=== PATIENT | female | born 1940 | race Caucasian/White ===

== ENCOUNTER 2016-11-08 01:04 | Inpatient (IN) ==
[2016-11-08] MEDS ORDERED: SALINE FLUSH 10ml SYRINGE IVF PRN (01:29)
[2016-11-08] MEDS ORDERED: ONDANSETRON 4 MG/2 ML INJECTION IVP ONE ×3 (01:30→20:02)
[2016-11-08] MEDS ORDERED: NS 1,000 ML IV ONE (01:30)
[2016-11-08] MEDS ORDERED: FentaNYL 100 MCG/2 ML INJECTION IVP ONE (01:30)
--- NOTE | 2016-11-08 01:31 | Emergency Department Report ---
General Adult HPI - General Chief complaint: Abdominal Pain Stated complaint: nausea,abd pain Time Seen by Provider: 11/08/16 01:19 Source: patient, family Mode of arrival: ambulatory Limitations: no limitations - History of Present Illness HPI narrative: 75-year-old female presents to the emergency department with a chief complaint of intractable nausea and vomiting and persistent abdominal pain. Patient was seen in the emergency department on November 05 and was discharged home with prescriptions for [place], Zofran, and Levaquin. Patient states that she is not improving in her symptoms have exacerbated. She states she is unable to keep down her medications or oral intake. Patient describes her abdominal pain is moderate to severe in nature. It is in the upper abdomen without radiation. She does not note any exacerbating or remitting factors. She denies any blood in the emesis. Patient was at home when her symptoms began. Symptoms been persistent in nature since onset. Patient is currently being treated for bilateral lower lobe consolidations noted on CT scan of the abdomen pelvis. No other complaints or associated symptoms. - Related Data Home Medications Medication Instructions Recorded Confirmed Flaxseed Oil 1,000 mg PO DAILY #0 08/05/10 Garlic 1 cap PO DAILY #0 08/05/10 [place]-3 Fatty Acids [Fish Oil] 500 mg PO DAILY #0 08/05/10 Potassium Chloride (K+ Potassium) 20 meq PO DAILY #0 08/05/10 Sennosides [Senokot] 8.6 mg PO DAILY #0 08/05/10 Ubidecarenone/Vitamin E [Co Q-10 1 cap PO DAILY #0 08/05/10 50 mg Softgel] Aspirin [Aspir 81] 81 mg PO DAILY #0 02/16/11 Cranberry 500 mg PO DAILY #0 02/16/11 Green Tea [place] Extract [Green Tea] 1 cap PO DAILY #0 02/16/11 Lactobacillus Acidophilus 1 cap PO DAILY #0 02/16/11 [Acidophilus] Triamterene [Dyrenium] 50 mg PO DAILY #0 02/16/11 Previous Rx's Medication Instructions Recorded Hydrocodone/APAP 5/325 [[place] 1 tab PO Q6H PRN #12 tab 11/05/16 5/325] Levofloxacin [Levaquin] 500 mg PO DAILY #5 tablet 11/05/16 Ondansetron [Zofran Odt] 1 tab PO Q6HR PRN #10 tab 11/05/16 Allergies Allergy/AdvReac Type Severity Reaction Status Date / Time No Known Allergies Allergy Verified 11/05/16 21:41 Review of Systems Constitutional: Denies: fever, chills Eyes: Denies: eye pain, vision change ENT: Denies: ear pain, throat pain Cardiovascular: Denies: chest pain, palpitations Respiratory: Reports: cough. Denies: dyspnea Gastrointestinal: Reports: abdominal pain, nausea, vomiting. Denies: diarrhea Genitourinary: Denies: urgency, dysuria Musculoskeletal: Denies: back pain, arthralgia Integumentary: Denies: erythema, rash Neurological: Denies: headache, numbness Psychiatric: Denies: anxiety, depression Endocrine: Denies: fatigue, heat or cold intolerance Hematological/Lymphatic: Denies: easy bleeding, easy bruising Allergic/Immunologic: Denies: facial swelling, urticaria PFSH Patient Stated Medical History Heart Murmur Yes Hypertension Yes Gastroesophageal Reflux Yes Disease Osteoarthritis Yes Surgical History: Tubal Ligation Family History: Reviewed and noncontributory. - Social History Smoking status: Never smoker Substance use type: does not use Alcohol intake frequency: does not drink Physical Exam - Limitations Limitations: no limitations - General General appearance: alert, in no apparent distress - Normal Exams: Head:: Normocephalic without trauma Eyes:: Pupils are PERRLA w/ EOMI, No scleral icterus, irritation, or foreign bodies noted ENMT:: No facial trauma, nasal exudates, pharyngeal erythema, or exudates are noted Dental: No fractured, loose, or missing teeth noted Neck:: Full range of motion, without adenopathy, JVD, bruits or thyromegaly Chest/Respirations:: Clear all philippe, with good airflow, and symmetry bilaterally Cardiovascular:: Regular rate and rhythm, without murmur or gallop, Pulses 2+ all extremities, capillary refill, <2 seconds all extremities Abdomen:: Bowel sounds positive, non-distended, no hepatosplenomegaly, masses or bruits noted (mild epigastric tenderness to palpation without rebound or guarding. No CVA tenderness. Soft.) Lymphatic:: No lymphadenopathy, or lymphedema noted Musculoskeletal:: No tenderness, or deformity noted, good range of motion, all extremities Integumentary:: No rashes, hives, or bruising noted, hair and nails, without abnormality Neurological:: Patient is alert, and oriented, cranial nerves, motor/sensory/ cerebellar, exams w/o gross deficits, to observation Psychiatric:: Patient exhibits, appropriate attention, emotion and affect Course Vital Signs Temperature 98.1 F 11/08/16 01:04 Pulse Rate 82 11/08/16 01:04 Respiratory Rate 18 11/08/16 01:04 Blood Pressure 179/91 H 11/08/16 01:04 Pulse Oximetry 92 11/08/16 01:04 Temperature 98.1 F 11/08/16 01:04 Pulse Rate 82 11/08/16 01:04 Respiratory Rate 18 11/08/16 01:04 Blood Pressure 179/91 H 11/08/16 01:04 Pulse Oximetry 92 11/08/16 01:04 Medical Decision Making - [facility] Narrative Medical decision making narrative: Labs / imaging were discussed in detail with the patient and questions are answered. Patient had a CT scan of the abdomen and pelvis done on 11/06/2016 which showed bilateral lower lobe consolidations of the lungs and an abnormal pancreatic lesion. Imaging is not repeated due to the recent nature of these images. Patient is given gentle IV hydration. She is given parental narcotic and antiemetic medications intravenously with improvement of symptoms. Patient is still experiencing nausea and vomiting in the emergency department. Patient requests admission to the hospital at this time. Patient is started on Rocephin and azithromycin intravenously at 0330 when sepsis was considered. Patient was discussed with Dr. Pranav Krueger from the hospitalist service who agrees to admit the patient to the service of Dr. Carlson. No further orders from consulting or accepting physicians who were in agreement with the current plan of management. Patient has failed outpatient treatment and will be treated in the hospital at this time. - Differential Diagnosis intractable nausea and vomiting, failed outpatient treatment,metabolic, PNA - Lab Data Result diagrams: 11/08/16 01:46 11/08/16 01:46 Lab Results 11/08/16 11/08/16 11/08/16 Range/Units 01:46 01:46 03:00 WBC 18.1 H D (4.5-11.0) T/MM3 RBC 5.29 H (4.00-5.20) M/MM3 Hgb 15.7 (12-16) GM/DL Hct 45.0 (36-46) % MCV 85.1 (80-100) UM3 MCH 29.7 (26-34) UUG MCHC 34.9 (31-37) GM/DL RDW Std Deviation 42.2 (36.9-50.2) FL Plt Count 353 (130-400) T/MM3 MPV 9.9 (9.4-12.4) UM3 Immature Gran % (Auto) Not performed Neut % (Auto) Not performed Lymph % (Auto) Not performed [place] % (Auto) Not performed Eos % (Auto) Not performed Baso % (Auto) Not performed Neut # Not performed Lymph # Not performed [place] # Not performed Eos # Not performed Baso # Not performed Abs Immat Gran (auto) Not performed Neutrophils % (Manual) 85.0 H (33-66) % Lymphocytes % (Manual) 11.0 L (23-45) % Monocytes % (Manual) 4.0 (0-9.0) % Neutrophils # (Manual) 15.4 H (1.8-7.7) T/MM3 Lymphocytes # (Manual) 2.0 (1-4.8) T/MM3 Monocytes # (Manual) 0.7 (0-0.8) T/MM3 RBC Morph Comment Normal Turbidity < 20 (0-20) Sodium 132 L D (134-144) MEQ/L Potassium 3.4 L (3.6-5) MEQ/L Chloride 92 L D (98-107) MEQ/L Carbon Dioxide 29 (22-30) MEQ/L Anion Gap 11 (5-15) MEQ/L BUN 21.0 H (7-17) MG/DL Creatinine 0.8 (0.7-1.2) MG/DL GFR Calculation 70 BUN/Creatinine Ratio 26 (6-26) RATIO Glucose 140 H (65-110) MG/DL Calculated Osmolality 260 L (261-280) MOSM/KG Calcium 10.5 H (8.4-10.2) MG/DL Total Bilirubin 0.90 (0.20-1.30) MG/DL Icterus Index < 2 (0-7) AST 14 (14-36) U/L ALT 41 (9-52) U/L Alkaline Phosphatase 65 (38-126) U/L Total Protein 8.2 (6.3-8.2) G/DL Albumin 4.8 (3.5-5.0) G/DL Globulin 3.4 (2.4-3.6) G/DL Albumin/Globulin Ratio 1.4 (1.1-2.2) RATIO Lipase 91 (23-300) U/L Plasma Lactate (0.6-2.2) MMOL/L Specimen Hemolysis < 15 (0-25) Ur Collection Type Urine, clean catch Urine Color Yellow (YELLOW) Urine Clarity Clear Urine pH 6.0 (5.0-8.0) Ur Specific [place] 1.025 (1.015-1.025) Urine Protein Negative (NEGATIVE) Urine Glucose (UA) Negative (NEGATIVE) Urine Ketones Trace A (NEGATIVE) Urine Occult Blood Negative (NEGATIVE) Urine Nitrate Negative (NEGATIVE) Urine Bilirubin 1+ A (NEGATIVE) Urine Urobilinogen 0.2 (NORMAL) EU/DL Ur Leukocyte Esterase Negative (NEGATIVE) Urinalysis Comment Microscopic not ind. 11/08/16 Range/Units 04:14 WBC (4.5-11.0) T/MM3 RBC (4.00-5.20) M/MM3 Hgb (12-16) GM/DL Hct (36-46) % MCV (80-100) UM3 MCH (26-34) UUG MCHC (31-37) GM/DL RDW Std Deviation (36.9-50.2) FL Plt Count (130-400) T/MM3 MPV (9.4-12.4) UM3 Immature Gran % (Auto) Neut % (Auto) Lymph % (Auto) [place] % (Auto) Eos % (Auto) Baso % (Auto) Neut # Lymph # [place] # Eos # Baso # Abs Immat Gran (auto) Neutrophils % (Manual) (33-66) % Lymphocytes % (Manual) (23-45) % Monocytes % (Manual) (0-9.0) % Neutrophils # (Manual) (1.8-7.7) T/MM3 Lymphocytes # (Manual) (1-4.8) T/MM3 Monocytes # (Manual) (0-0.8) T/MM3 RBC Morph Comment Turbidity (0-20) Sodium (134-144) MEQ/L Potassium (3.6-5) MEQ/L Chloride (98-107) MEQ/L Carbon Dioxide (22-30) MEQ/L Anion Gap (5-15) MEQ/L BUN (7-17) MG/DL Creatinine (0.7-1.2) MG/DL GFR Calculation BUN/Creatinine Ratio (6-26) RATIO Glucose (65-110) MG/DL Calculated Osmolality (261-280) MOSM/KG Calcium (8.4-10.2) MG/DL Total Bilirubin (0.20-1.30) MG/DL Icterus Index (0-7) AST (14-36) U/L ALT (9-52) U/L Alkaline Phosphatase (38-126) U/L Total Protein (6.3-8.2) G/DL Albumin (3.5-5.0) G/DL Globulin (2.4-3.6) G/DL Albumin/Globulin Ratio (1.1-2.2) RATIO Lipase (23-300) U/L Plasma Lactate 1.2 (0.6-2.2) MMOL/L Specimen Hemolysis (0-25) Ur Collection Type Urine Color (YELLOW) Urine Clarity Urine pH (5.0-8.0) Ur Specific [place] (1.015-1.025) Urine Protein (NEGATIVE) Urine Glucose (UA) (NEGATIVE) Urine Ketones (NEGATIVE) Urine Occult Blood (NEGATIVE) Urine Nitrate (NEGATIVE) Urine Bilirubin (NEGATIVE) Urine Urobilinogen (NORMAL) EU/DL Ur Leukocyte Esterase (NEGATIVE) Urinalysis Comment - Radiology Data CT ABD/PELVIS: Reviewed from 11/06/16. - EKG Data EKG #1 EKG results narrative: Sinus rhythm. 86 bpm. No STEMI. Disposition Clinical Impression: Failure of outpatient treatment Intractable nausea and vomiting Qualifiers: Vomiting type: unspecified Qualified Code(s): R11.2 - Nausea with vomiting, unspecified Pneumonia Qualifiers: Pneumonia type: due to unspecified organism Laterality: unspecified laterality Lung location: unspecified part of lung Qualified Code(s): J18.9 - Pneumonia, unspecified organism Disposition: 02 To [facility] [place] Acute Care Condition: Improved Prescriptions: No Action [place]-3 Fatty Acids [Fish Oil] 500 mg PO DAILY #0 Flaxseed Oil 1,000 mg PO DAILY #0 Potassium Chloride (K+ Potassium) 20 meq PO DAILY #0 Sennosides [Senokot] 8.6 mg PO DAILY #0 Triamterene [Dyrenium] 50 mg PO DAILY #0 Aspirin [Aspir 81] 81 mg PO DAILY #0 Cranberry 500 mg PO DAILY #0 Hydrocodone/APAP 5/325 [[place] 5/325] 1 tab PO Q6H PRN #12 tab PRN Reason: Pain Ondansetron [Zofran Odt] 1 tab PO Q6HR PRN #10 tab PRN Reason: Nausea Ubidecarenone/Vitamin E [Co Q-10 50 mg Softgel] 1 cap PO DAILY #0 Garlic 1 cap PO DAILY #0 Green Tea [place] Extract [Green Tea] 1 cap PO DAILY #0 Lactobacillus Acidophilus [Acidophilus] 1 cap PO DAILY #0 Levofloxacin [Levaquin] 500 mg PO DAILY #5 tablet Referrals: Ignacio Gomez DO [Family Provider] - Time of Disposition: 03:20 (Admit. Dr. Carlson. ) - Seen By: physician
[2016-11-08] MEDS ORDERED: AZITHROMYCIN IV 500 MG in NS 250ml 250 ML IV ONE (03:30)
[2016-11-08] MEDS ORDERED: CEFTRIAXONE (ER USE ONLY) 1 GM in NS 100 ML IV ONE (03:30)
[2016-11-08] MEDS ORDERED: AZITHROMYCIN IV 500 MG in NS 250ml 250 ML IV SCH (04:35)
[2016-11-08] MEDS ORDERED: CEFTRIAXONE 2 GM INJECTION IV SCH (04:35)
[2016-11-08] MEDS ORDERED: ALBUTEROL 2.5mg/3ml (0.083%) NEB AEROSOL ONE (04:35)
--- NOTE | 2016-11-08 04:59 | History & Physical Report ---
History of Present Illness Date: 11/08/16 Chief complaint: nausea, weakness HPI: This is a 75 y/o female who was seen this past Tuesday in the ED for nausea, abdomen pain, and shortness of breath. The workup demonstrated a right lower lobe infiltrate and a cyst in the head of the Pancrease. The patient was diagnosed with CAP and started on Levaquin. Since discharge from the ED the patient has had persist nausea and weakness. The patient denies fever but perhaps chills and sweats. The patient's labs demonstrate a significant leukocytosis and evidence of dehydration. She is to be admitted for IVF and Iv antibiotics for her CAP. The pateint does describe a cough that is productive of a green sputum Review of Systems Review of systems: no headache, no change in vision, no fever but chills and sweats, generalized weakness. nausea with occasional emesis, cough productive of green sputum, abdomen pain from nausea and emesis, no diarrhea, no edema to legs, no focal neurological complaints. 10 point ROS otherwise neg except for outlined abovce. 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 Does patient use chewing tobacco?: No Current residence: Apartment/Private Home Medications Home Medications Medication Instructions Recorded Confirmed Type Flaxseed Oil 1,000 mg PO DAILY #0 08/05/10 History Garlic 1 cap PO DAILY #0 08/05/10 History [place]-3 Fatty Acids [Fish Oil] 500 mg PO DAILY #0 08/05/10 History Potassium Chloride (K+ Potassium) 20 meq PO DAILY #0 08/05/10 History Sennosides [Senokot] 8.6 mg PO DAILY #0 08/05/10 History Ubidecarenone/Vitamin E [Co Q-10 1 cap PO DAILY #0 08/05/10 History 50 mg Softgel] Aspirin [Aspir 81] 81 mg PO DAILY #0 02/16/11 History Cranberry 500 mg PO DAILY #0 02/16/11 History Green Tea [place] Extract [Green Tea] 1 cap PO DAILY #0 02/16/11 History Lactobacillus Acidophilus 1 cap PO DAILY #0 02/16/11 History [Acidophilus] Triamterene [Dyrenium] 50 mg PO DAILY #0 02/16/11 History Allergies Allergy/AdvReac Type Severity Reaction Status Date / Time No Known Allergies Allergy Verified 11/05/16 21:41 Exam Vital Signs: Temperature 98.1 F 11/08/16 01:04 Pulse Rate 82 11/08/16 01:04 Respiratory Rate 18 11/08/16 01:04 Blood Pressure 179/91 H 11/08/16 01:04 Pulse Oximetry 92 11/08/16 01:04 Telemetry Rhythm: Sinus Rhythm Height: 1.57 m Weight: 71.5 kg - Constitutional Present: mild distress - Routine HEENT Exam Head: Present: normocephalic, atraumatic Eye: Present: EOMI. Absent: scleral injection ENT: Present: mucous membranes dry - Routine Neck Exam Present: supple, full ROM - Routine Respiratory Exam Comments: diminished breath sounds with occasional rhonchi - Routine Cardiovascular Exam Present: RRR, no murmur - Routine Abdominal Exam Present: soft, normoactive bowel sounds, non tender. Absent: distended - Routine Extremities Exam Present: non tender, full ROM. Absent: cyanosis, edema - Routine Back/Spine/Pelvis Exam Back/Spine: Present: full ROM - Routine Skin Exam Present: intact - Routine Neurological Exam Present: alert, oriented X3, CN II-XII intact. Absent: motor deficit - Routine Psychiatric Exam Present: normal affect Results - Labs CBC & Chem 7: 11/08/16 01:46 11/08/16 01:46 Labs: labs demonstrate leukocytosis with hyponatremia. (will discuss below) UA negative imaging of the chest was not repeated Microbiology Results: Microbiology 11/08/16 04:16 Peripheral/Iv Start Blood Culture - Preliminary Culture Initiated - Results Pending 11/08/16 04:14 Peripheral/Iv Start Blood Culture - Preliminary Culture Initiated - Results Pending Assessment and Plan (1) Community acquired pneumonia Current visit: Yes Status: Acute 11/08/16 05:02 patient with productive cough. I can see no CXR done on this patient on Tuesday. CT scan suggest lower lobe infiltrate. will add 2 view CXR this am and use rocephin/zithromax in case levaquin was exacerbating her GI sx. cultures have been sent. adjust meds based on cultrue results (2) Intractable nausea and vomiting Current visit: Yes Status: Acute 11/08/16 05:04 patient with significant sx. may be exacerbated by levaquin. patient reports nausea preceded Rx of Levaquin and she has had only one dose. zofran, reglan prn ivf, clear liquid diet, reassess in 12 hours (3) Dehydration Current visit: Yes Status: Acute 11/08/16 05:05 due to gi component. ivf, patient's sodium id decreased secondary to hypovolemia. repeat labs in 24 hours. (4) Sepsis Current visit: Yes Status: Acute 11/08/16 05:05 due to tachycardia and leukocytosis. ivf, repat markers in 24 hours. DVT Prophylaxis: SCD's GI Prophylaxis: Protonix Resuscitation Status: Full Code Hospital Course Summary Disclaimer: The visit summary below is not to be considered part of the above Progress Note.
[2016-11-08] MEDS: NS 1,000 ML IV SCH ×2 (05:01→16:01)
[2016-11-08] MEDS ORDERED: HYDRALAZINE 20 MG/ML INJECTION IVP PRN (05:07)
[2016-11-08] MEDS: FentaNYL 100 MCG/2 ML INJECTION IVP PRN ×2 (05:21→19:52)
[2016-11-08] MEDS: METOCLOPRAMIDE 10mg/2ml INJECTION IVP PRN ×2 (05:43→15:18)
[2016-11-08] MEDS: ONDANSETRON 4 MG/2 ML INJECTION IVP PRN ×3 (08:08→18:38)
--- NOTE | 2016-11-08 08:14 | XRay Report ---
Indication: cough, CT of abdomen, need to get actual complete view of geovani PROCEDURE: XR chest 2V: Encounter: Initial Comparison: CT abdomen pelvis 10/28/2016 Findings: Two views of the chest are submitted. The lungs appear to be clear of opacities and there is right hemidiaphragmatic elevation. The heart is unenlarged. There is no pulmonary vascular engorgement and the pleural spaces appear to be clear. The bony structures are intact showing only age-related degenerative changes. Impression: Negative for acute chest disease. .
[2016-11-08] MEDS ORDERED: GI COCKTAIL 30 ML PO ONE (11:39)
[2016-11-08] MEDS ORDERED: MAG-AL + SIM ORAL LIQUID 30ml PO PRN (11:40)
[2016-11-08] MEDS ORDERED: PANTOPRAZOLE 40 MG INJECTION IVP SCH (11:45)
[2016-11-08] MEDS ORDERED: OXYMETAZOLINE 0.05% NASAL SPRAY 15ml EA NOSTRIL ONE (19:40)
[2016-11-08] MEDS: SALINE FLUSH 10ml SYRINGE IV PRN (19:54)
[2016-11-08] MEDS ORDERED: PROMETHAZINE 25 MG INJECTION IVP PRN (20:04)
[2016-11-09] MEDS: POTASSIUM CHLORIDE INJ 20 MEQ in NS 1,000 ML IV SCH ×2 (02:16→13:53)
[2016-11-09] MEDS: FentaNYL 100 MCG/2 ML INJECTION IVP PRN ×3 (04:45→21:54)
--- NOTE | 2016-11-09 07:55 | XRay Report ---
Indication: probable SBO PROCEDURE: PA view of the chest with supine and upright AP views of the abdomen Encounter: Initial Comparison: CT abdomen dated November 05, 2016 FINDINGS: New nasogastric tube projects over the body of the stomach. The lungs are hypoinflated, but clear. There is no pneumonia or pneumothorax identified. The heart size, pulmonary vasculature and mediastinum are within normal limits. There is no free air on the upright view. New dilated small bowel with differential air-fluid levels. Small bowel loops measuring up to 4.3 cm in diameter. Scattered colonic gas present to the level of the rectum. IMPRESSION: 1. No acute cardiopulmonary abnormality. 2. Findings of small bowel obstruction. .
[2016-11-09] MEDS ORDERED: PANTOPRAZOLE 40 MG TABLET PO SCH (09:00)
--- NOTE | 2016-11-09 09:24 | Ultrasound Report ---
Indication: RUQ pain, distended, N/V PROCEDURE: US abdomen limited: Encounter: Initial Comparison: None Technique: Grayscale and color Doppler sonographic imaging of the right upper quadrant of the abdomen was performed. Findings: Hepatic parenchyma is heterogeneous without evidence for focal mass. This could be due to fatty infiltration The gallbladder is normal. There is no wall thickening, pericholecystic fluid, sonographic El's sign or cholelithiasis. Both the intra and extrahepatic biliary system are of normal caliber with the common duct measuring 6 mm in dimension. Pancreas not well seen due to shadowing bowel gas. The right kidney is present with mild hydronephrosis. The right kidney measures 9.5 cm in length. Dilated fluid-filled small bowel loops were noted incidentally. Images of the bladder are unremarkable. Impression: Normal appearance of the gallbladder. Mild right hydronephrosis. .
[2016-11-09] MEDS: CEFTRIAXONE 1 G in NS 100 ML IV SCH (09:52)
[2016-11-09] MEDS: NS with KCL 20 mEq 1,000 ML IV SCH ×2 (12:33→23:13)
[2016-11-09] MEDS ORDERED: PNEUMOCOCCAL 23 VACCINE 0.5ml INJECTION IM ONE (14:01)
--- NOTE | 2016-11-09 18:13 | Internal Med Progress Note ---
Internal Medicine Subjective Rupali is a very pleasant 75-year-old white female who was admitted ostensibly for pneumonia, however she has a small bowel obstruction. Last evening we had an NG tube placed with a large volume of return. She had been vomiting bile prior to that placement. She's had a large volume out and she is feeling much better this evening. She still has minimal bowel sounds and positive NG tube output so the NG tube is staying for tonight. I did encourage her to walk this evening and spoke with nursing staff regarding this. Later they will clamp her NG tube and allow her to walk and then reconnect it. Acute abdominal series was reviewed and consistent with small bowel obstruction. Exam Vital Signs: Temperature 96.9 F 11/09/16 15:34 Pulse Rate 73 11/09/16 15:34 Respiratory Rate 18 11/09/16 15:34 Blood Pressure 150/75 H 11/09/16 15:34 Pulse Oximetry 98 11/09/16 15:34 Oxygen Delivery Method Room Air Telemetry Rhythm: Sinus Rhythm Height: 5 ft 2 in Weight: 72.9 kg Body Mass Index: 29.4 - Constitutional Present: mild distress, cooperative - Routine HEENT Exam Head: Present: normocephalic, atraumatic Eye: Present: EOMI, PERRL, conjunctivae pink. Absent: conjunctival icterus, scleral injection ENT: Present: mucous membranes dry, oropharynx clear Comments: NG tube placed - Routine Neck Exam Present: supple, full ROM. Absent: JVD, carotid bruit, lymphadenopathy, thyromegaly, tenderness - Routine Chest/Breast/Axilla Exam Chest wall: Absent: tenderness Axillae: Absent: lymphadenopathy - Routine Respiratory Exam Present: CTA bilaterally. Absent: accessory muscle use, dyspnea, decreased breath sounds, respiratory distress, rhonchi, stridor, wheezes, crackles - Routine Cardiovascular Exam Present: RRR, murmur. Absent: S3, S4 - Routine Abdominal Exam Present: soft, tenderness, distended (mildly), rebound, guarding. Absent: normoactive bowel sounds - Routine Extremities Exam Absent: cyanosis, clubbing, edema, non tender - Routine Skin Exam Present: intact, cyanosis, dry. Absent: erythema, pallor, mottling - Routine Neurological Exam Present: alert, oriented X3, CN II-XII intact, normal reflexes, moving all extremities. Absent: altered mental status - Routine Psychiatric Exam Present: normal affect, cooperative, good insight, good judgment. Absent: depressed, anxious Internal Medicine Results - Labs CBC & Chem 7: 11/09/16 04:11 11/09/16 04:11 Labs: Short CBC 11/09/16 Range/Units 04:11 WBC 11.5 H (4.5-11.0) T/MM3 Hgb 13.6 D (12-16) GM/DL Hct 39.3 D (36-46) % Plt Count 285 (130-400) T/MM3 BMP 11/09/16 04:11 Sodium 137 Potassium 3.0 L Chloride 103 D Carbon Dioxide 27 BUN 19.0 H Creatinine 0.7 Glucose 94 Calcium 8.9 D Liver Function 11/09/16 Range/Units 04:11 Total Bilirubin 0.80 (0.20-1.30) MG/DL AST 10 L (14-36) U/L ALT 33 (9-52) U/L Alkaline Phosphatase 42 D (38-126) U/L Albumin 3.6 (3.5-5.0) G/DL - Imaging and Cardiology US - abdomen Status: image reviewed by me Progress Note-A&P (1) Small bowel obstruction Status: Acute Current Visit: Yes (2) Dehydration Status: Acute Current Visit: Yes (3) Intractable nausea and vomiting Status: Acute Current Visit: Yes (4) Hypokalemia Status: Acute Current Visit: Yes - Time Spent With Patient Total time spent is greater than 50% in coordination of care (as documented) at patient's floor/unit and/or counseling patient: 25 - 35 minutes Sepsis Assessment - Evaluation Sepsis screening result: No Definite Risk Hospital Course Summary Disclaimer: The visit summary below is not to be considered part of the above Progress Note. Hospital Course: 11/09/16 18:18 Patient is improved with placement of NG tube to intermittent suction. She will try walking this evening. I will recheck her labs in the morning and assess her clinically. Once her bowel sounds return and she is at least passing flatness and it has no nausea, we will then clamp the NG tube and then later remove it.
[2016-11-10] MEDS: FentaNYL 100 MCG/2 ML INJECTION IVP PRN ×4 (03:49→20:05)
[2016-11-10] MEDS: CEFTRIAXONE 1 G in NS 100 ML IV SCH (08:43)
[2016-11-10] MEDS: MAGNESIUM SULFATE 1gm PREMIX 1 GM/100 ML BAG IV SCH ×2 (10:07→11:07)
[2016-11-10] MEDS: NS with KCL 20 mEq 1,000 ML IV SCH ×3 (10:08→22:58)
[2016-11-10] MEDS ORDERED: PNEUMOCOCCAL 23 VACCINE 0.5ml INJECTION IM ONE (12:00)
[2016-11-10] MEDS ORDERED: BISACODYL 10 MG SUPPOSITORY RECTALLY ONE ×2 (13:51→18:25)
--- NOTE | 2016-11-10 14:43 | XRay Report ---
Indication: DOCTORS ORDER PROCEDURE: XR KUB w upright: Encounter: Initial Comparison: November 09, 2016 Findings: Nasogastric tube in stable position. Dilated small bowel with differential air-fluid levels showing a "stairstep" appearance. No free air appreciated. Interval decrease in colonic gas. Impression: Continued findings of a high-grade or complete small bowel obstruction. .
[2016-11-10] MEDS ORDERED: PNEUMOCOCCAL VAC ADMIN CHARGE INJ ONE (15:00)
--- NOTE | 2016-11-10 18:30 | Internal Med Progress Note ---
Internal Medicine Subjective Rupali is a very pleasant 75-year-old white female who was seen and examined in her room. at bedside. Questions answered. Rupali seems to be doing better today. Her flat plate and upright abdomen series still demonstrates a small bowel obstruction. It is somewhat improved however. She hasn't walked 3 times today. Exam Vital Signs: Temperature 96.8 F 11/10/16 15:56 Pulse Rate 70 11/10/16 15:56 Respiratory Rate 16 11/10/16 15:56 Blood Pressure 128/69 11/10/16 15:56 Pulse Oximetry 94 11/10/16 15:56 Oxygen Delivery Method Room Air Telemetry Rhythm: Sinus Rhythm Height: 5 ft 2 in Weight: 71.5 kg Body Mass Index: 29.4 - Constitutional Present: mild distress - Routine HEENT Exam Head: Present: normocephalic, atraumatic Eye: Present: EOMI, PERRL, conjunctivae pink. Absent: conjunctival icterus, scleral injection - Routine Neck Exam Present: supple. Absent: lymphadenopathy, thyromegaly, tenderness - Routine Chest/Breast/Axilla Exam Chest wall: Absent: tenderness Axillae: Absent: lymphadenopathy - Routine Respiratory Exam Absent: accessory muscle use, dyspnea, rales, respiratory distress, rhonchi, stridor, wheezes - Routine Cardiovascular Exam Present: RRR, murmur - Routine Abdominal Exam Present: tenderness, distended (mildly). Absent: normoactive bowel sounds, rebound, guarding, rigid - Routine Extremities Exam Absent: cyanosis, clubbing, edema, calf tenderness - Routine Skin Exam Present: intact, dry. Absent: cyanosis, erythema, mottling, urticaria, jaundice - Routine Neurological Exam Present: alert, oriented X3, moving all extremities. Absent: altered mental status - Routine Psychiatric Exam Present: normal affect, normal thought process, cooperative, good insight, good judgment. Absent: depressed, anxious Internal Medicine Results - Labs CBC & Chem 7: 11/10/16 07:53 11/10/16 07:53 Labs: Short CBC 11/10/16 Range/Units 07:53 WBC 10.1 (4.5-11.0) T/MM3 Hgb 14.1 (12-16) GM/DL Hct 40.7 (36-46) % Plt Count 273 (130-400) T/MM3 BMP 11/10/16 07:53 Sodium 145 H D Potassium 3.0 L Chloride 105 Carbon Dioxide 26 BUN 19.0 H Creatinine 0.7 Glucose 74 Calcium 8.8 - Imaging and Cardiology Abdominal x-ray Status: image reviewed by me Progress Note-A&P (1) Small bowel obstruction Status: Acute Assessment and plan: Improving. Continue NG tube suctioning and ambulation. Consider surgical consult Current Visit: Yes (2) Dehydration Status: Acute Assessment and plan: Improved. Continue IV hydration Current Visit: Yes (3) Intractable nausea and vomiting Status: Resolved Current Visit: Yes (4) Hypokalemia Status: Acute Assessment and plan: Magnesium added Current Visit: Yes - Time Spent With Patient Total time spent is greater than 50% in coordination of care (as documented) at patient's floor/unit and/or counseling patient: 25 - 35 minutes Sepsis Assessment - Evaluation Sepsis screening result: No Definite Risk Hospital Course Summary Disclaimer: The visit summary below is not to be considered part of the above Progress Note. Hospital Course: 11/09/16 18:18 Patient is improved with placement of NG tube to intermittent suction. She will try walking this evening. I will recheck her labs in the morning and assess her clinically. Once her bowel sounds return and she is at least passing flatness and it has no nausea, we will then clamp the NG tube and then later remove it.
[2016-11-10] MEDS: METOCLOPRAMIDE 10mg/2ml INJECTION IVP PRN (20:14)
[2016-11-11] MEDS: FentaNYL 100 MCG/2 ML INJECTION IVP PRN ×2 (04:09→07:57)
[2016-11-11] MEDS: NS with KCL 20 mEq 1,000 ML IV SCH ×2 (05:03→11:43)
[2016-11-11] MEDS: CEFTRIAXONE 1 G in NS 100 ML IV SCH (08:55)
[2016-11-11] MEDS: PANTOPRAZOLE 40 MG INJECTION IVP SCH (08:55)
--- NOTE | 2016-11-11 09:14 | General Surgery Consult Note ---
Consult date: 11/11/16 Attending Physician: Ignacio Gomez DO Reason for consult: other (small bowel obstruction) PFSH HTN GERD Osteoarthritis Cardiac murmur Surgical History: Tubal Ligation,. Bilateral cataracts 2010,. Basal Cell carcinoma on nose 2010, Dr. Alejandro. Family History: farther - age 88 of stroke mother - age 88 of old age, had ovarian cancer brother- testicular cancer brother - prostate cancer - Social History Smoking status: Never smoker Alcohol intake frequency: does not drink Current occupational status: retired Previous occupational history: retired hospice nurse Does patient use chewing tobacco?: No Current residence: Apartment/Private Home Medications Home Medications Medication Instructions Recorded Confirmed Type Flaxseed Oil 1,000 mg PO DAILY #0 08/05/10 History Garlic 1 cap PO DAILY #0 08/05/10 History [place]-3 Fatty Acids [Fish Oil] 500 mg PO DAILY #0 08/05/10 History Potassium Chloride (K+ Potassium) 20 meq PO DAILY #0 08/05/10 History Sennosides [Senokot] 8.6 mg PO DAILY #0 08/05/10 History Ubidecarenone/Vitamin E [Co Q-10 1 cap PO DAILY #0 08/05/10 History 50 mg Softgel] Aspirin [Aspir 81] 81 mg PO DAILY #0 02/16/11 History Cranberry 500 mg PO DAILY #0 02/16/11 History Green Tea [place] Extract [Green Tea] 1 cap PO DAILY #0 02/16/11 History Lactobacillus Acidophilus 1 cap PO DAILY #0 02/16/11 History [Acidophilus] Triamterene [Dyrenium] 50 mg PO DAILY #0 02/16/11 History Allergies Allergy/AdvReac Type Severity Reaction Status Date / Time No Known Allergies Allergy Verified 11/05/16 21:41 Review of Systems 10-point ROS: negative except for HPI and the following: - General General: Present: chills - Respiratory Respiratory: Present: cough (recent Dx of CAP, but patient denies) - Musculoskeletal Musculoskeletal: Present: joint pain - Vital Signs Last Vital Signs Temp 97.8 F 11/11/16 07:41 Pulse 80 11/11/16 07:41 Resp 18 11/11/16 07:41 BP 154/83 H 11/11/16 07:41 Pulse Ox 98 11/11/16 07:41 - Laboratory Result Diagrams: 11/11/16 04:27 11/11/16 04:27 - Microbiogy Microbiology 11/08/16 04:16 Peripheral/Iv Start Blood Culture - Preliminary No Growth After 3 Days 11/08/16 04:14 Peripheral/Iv Start Blood Culture - Preliminary No Growth After 3 Days General Surgery Results - Results Labs: 11/11/16 04:27 11/11/16 04:27 Microbiology: Microbiology 11/08/16 04:16 Peripheral/Iv Start Blood Culture - Preliminary No Growth After 3 Days 11/08/16 04:14 Peripheral/Iv Start Blood Culture - Preliminary No Growth After 3 Days Hospital Course Summary Disclaimer: The visit summary below is not to be considered part of the above Progress Note. Hospital Course: 11/09/16 18:18 Patient is improved with placement of NG tube to intermittent suction. She will try walking this evening. I will recheck her labs in the morning and assess her clinically. Once her bowel sounds return and she is at least passing flatness and it has no nausea, we will then clamp the NG tube and then later remove it. Sepsis Assessment - Evaluation Sepsis screening result: No Definite Risk
[2016-11-11] MEDS ORDERED: DIATRIZOATE MEGLUMINE/SOD. (66%/10%) 120ml SOLN ONE (09:24)
[2016-11-11] MEDS: METOCLOPRAMIDE 10mg/2ml INJECTION IVP PRN (09:33)
[2016-11-11] MEDS: LIDOCAINE 1% 2ml INJ 10 MG, POTASSIUM CHLORIDE INJ 10 MEQ in NS 100 ML IV SCH ×4 (10:27→14:16)
[2016-11-11] MEDS ORDERED: POTASSIUM CHLORIDE PREMIX 10 MEQ/100 ML BAG IV SCH (13:45)
--- NOTE | 2016-11-11 14:41 | XRay Report ---
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 Water soluble contrast was administered via the nasogastric tube followed by serial abdominal radiographs. Contrast shows minimal progression through the duodenum into the proximal jejunum during the first 30 minutes with essentially no distal transit of contrast in the following four hours of imaging. After 4 1/2 hours of total imaging time contrast is only seen within the proximal part of the jejunum. A significant portion of the contrast remains within the mildly distended stomach. Impression: Findings of a complete small bowel obstruction. .
--- NOTE | 2016-11-11 14:46 | Consultation ---
DATE OF CONSULTATION 11/11/2016 FINDINGS Mrs. Aburto is a pleasant 75-year-old female whom I was asked to see today as a result of a suspected small bowel obstruction. The patient informs me that over the weekend she had developed severe pain within her upper abdomen. She states that she had initially presented to the emergency room on Tuesday evening as a result of this severe abdominal pain. The patient states that they felt as if perhaps she had the beginning of a pneumonia and was discharged from the emergency room. However, over the course of the weekend, she continued to have ongoing severe abdominal pain that became progressively worse. The patient also states that she began to develop severe nausea. The patient re-presented to the emergency room on Tuesday evening and was subsequently admitted as a result of a suspected small bowel obstruction in conjunction with an infiltrate noted on chest x-ray. The patient informs me that once the NG was placed she felt significantly better. She states, however, that the NG is causing her some discomfort within her nose. She states that her abdominal pain has markedly improved since the nasogastric tube had been placed. She denied really any radiating features of this upper abdominal pain when it had been present. The patient denies prior history for small bowel obstruction in the past. PAST MEDICAL HISTORY Performed by my nurse practitioner, Clemente East. PAST SURGICAL HISTORY Performed by my nurse practitioner, Clemente East. MEDICATIONS Performed by my nurse practitioner, Clemente East. ALLERGIES Performed by my nurse practitionerClemente. SOCIAL HISTORY Performed by my nurse practitionerClemente. FAMILY HISTORY Performed by my nurse practitionerClemente. REVIEW OF SYSTEMS Performed by my nurse practitionerClemente. PHYSICAL EXAMINATION Mrs. Aburto a 75-year-old female who did not appear to be in acute distress this morning. VITALS: Temperature 97.8. Pulse 80. Respirations 18. Blood pressure 154/83. SaO2 98% on room air. HEENT: Normocephalic. Pupils are equal, round and reactive to light and accommodation. NECK: Supple without lymphadenopathy. CHEST: Clear to auscultation bilaterally. HEART: Regular rate and rhythm. Normal S1 and S2 without gallops, murmurs or clicks. ABDOMEN: Visualization of the abdomen does reveal a small prior surgical incision extending from the umbilicus down towards the suprapubic region. The patient has had a prior tubal ligation in the remote past. There was no evidence of prominence along her prior surgical incision. Furthermore, there was no evidence for prominence within either the left or the right inguinal region. Palpation was then undertaken. No evidence for an inguinal hernia was appreciated bilaterally. No evidence for incisional hernia was noted. Palpation of the remaining abdomen revealed it to be soft and completely nontender. No evidence for hepatomegaly or other abnormal masses. EXTREMITIES: Without clubbing, cyanosis, or edema. NEURO: Cranial nerves II-XII grossly intact. Patient is without focal motor or sensory deficits. LABORATORY/RADIOGRAPH EVALUATION The patient had a CBC today and her white count is 13.1. Hemoglobin is stable at 14.1. She did have a leukocytosis at 17,000 upon admission. The patient was placed on antibiotics as a result of this infiltrate and continues to be on intravenous cephalosporin/antibiotic. BMP was obtained today and her potassium was low at 3.0. Radiographically she has had multiple x-rays revealing evidence for a small bowel obstruction. An NG was placed following her admission. Abdominal ultrasound was also obtained on November 09, 2016 that was found to be within normal limits. Some mild right hydronephrosis was noted. Chest x-ray obtained on November 08 did not reveal any evidence for acute disease process. ASSESSMENT 75-year-old female with radiographic evidence for a small bowel obstruction. PLAN "Gastrografin challenge"/Gastrografin small bowel follow-through. From a physical examination standpoint the patient does not have an acute surgical abdomen. It would be my recommendation at this point in time we proceed with a Gastrografin small bowel follow-through. If the contrast does progress through her small bowel will then DC NG and begin the patient on clear liquids. If, on the other hand, the contrast does not progress through the small bowel will then recommend proceeding with surgical intervention/ exploratory laparotomy. The above plan was discussed with the patient. The patient understood and agreed. KAREEM
[2016-11-11] MEDS ORDERED: ERTAPENEM 1 G in NS 100 ML IV ONE (15:32)
[2016-11-11] MEDS ORDERED: LR 1,000 ML IV SCH (15:34)
--- NOTE | 2016-11-11 15:42 | Anesthesia Preoperative Report ---
Anesthesia Preoperative Record - Date and Time Date: 11/11/16 Preoperative Diagnosis: Pneumonia,nausea vomiting Proposed Procedure: Ex-lap possible small bowel resection NPO Since Date: 11/11/16 NPO Since Time: 00:00 Allergies/Adverse Reactions: Allergies Allergy/AdvReac Type Severity Reaction Status Date / Time No Known Allergies Allergy Verified 11/05/16 21:41 - Vital Signs Vital Signs: Temperature 99.1 F 11/11/16 15:29 Pulse Rate 92 11/11/16 15:33 Respiratory Rate 20 11/11/16 15:29 Blood Pressure 175/93 H 11/11/16 15:29 Pulse Oximetry 99 11/11/16 15:29 Oxygen Delivery Method Room Air Height and Weight: Height 5 ft 2 in Weight 70.3 kg Body Mass Index 29.4 - Medications Inpatient Medications: Current Medications Al Hydroxide/Mg Hydroxide (Maalox Plus) 30 ml PO Q6H PRN PRN Reason: Indigestion Last Admin: 11/08/16 12:20 Dose: 30 ml Fentanyl (Fentanyl) 50 mcg IVP Q2HR PRN Last Admin: 11/11/16 07:57 Dose: 50 mcg Hydralazine HCl (Apresoline) 10 mg IVP Q6H PRN Last Admin: 11/08/16 05:12 Dose: 10 mg Ceftriaxone Sodium 1 g/ Sodium (Chloride) 100 mls @ 200 mls/hr IV Q24HR [facility] Last Infusion: 11/11/16 09:30 Dose: Infused Potassium Chloride/Dextrose/Sod Cl (D5-1/2ns With Kcl 20meq) 1,000 mls @ 100 mls/hr IV .Q10H GABO Ertapenem 1 g/ Sodium Chloride 100 mls @ 200 mls/hr IV O ONE Stop: 11/11/16 16:01 Lactated Ringer's (Lactated Ringers) 1,000 mls @ 50 mls/hr IV .Q20H GABO Last Admin: 11/11/16 15:35 Dose: 50 mls/hr Metoclopramide HCl (Reglan) 5 mg IVP Q6H PRN Last Admin: 11/11/16 09:33 Dose: 5 mg Pantoprazole Sodium (Protonix Iv) 40 mg IVP DAILY GABO Last Admin: 11/11/16 08:55 Dose: 40 mg Promethazine HCl (Phenergan Inj) 25 mg IVP Q6H PRN Last Admin: 11/11/16 11:30 Dose: 25 mg Sodium Chloride (Iv Flush) 10 ml IV PRN PRN PRN Reason: Flushing Last Admin: 11/08/16 19:54 Dose: 10 ml Home Medications: Home Medications Medication Instructions Recorded Confirmed Type Flaxseed Oil 1,000 mg PO DAILY #0 08/05/10 History Garlic 1 cap PO DAILY #0 08/05/10 History [place]-3 Fatty Acids [Fish Oil] 500 mg PO DAILY #0 08/05/10 History Potassium Chloride (K+ Potassium) 20 meq PO DAILY #0 08/05/10 History Sennosides [Senokot] 8.6 mg PO DAILY #0 08/05/10 History Ubidecarenone/Vitamin E [Co Q-10 1 cap PO DAILY #0 08/05/10 History 50 mg Softgel] Aspirin [Aspir 81] 81 mg PO DAILY #0 02/16/11 History Cranberry 500 mg PO DAILY #0 02/16/11 History Green Tea [place] Extract [Green Tea] 1 cap PO DAILY #0 02/16/11 History Lactobacillus Acidophilus 1 cap PO DAILY #0 02/16/11 History [Acidophilus] Triamterene [Dyrenium] 50 mg PO DAILY #0 02/16/11 History Is Patient on Beta Yesenia?: No - Medical History Respiratory: DENIES: Asthma, Bronchitis, Chronic Obstructive Pulmonary Disease (COPD), Dyspnea, Orthopnea, Pulmonary Embolism, Pneumonia, Upper Respiratory Infection, Pulmonary Edema, Sleep Apnea, Tuberculosis, Other Cardiovascular: Reports: Heart Murmur (benign) Gastrointestional: Reports: Gastroesophageal Reflux Disease Neuro/Musculoskeletal: Denies: HX.MS.OSAR, Back Problems, Cerebrovascular Accident, Depression, Headaches, Loss of Consciousness, Muscle Weakness, Neuromuscular Disorder, Paralysis, Paresthesia, Syncope, Seizures, Other Renal/Endocrine: DENIES: Diabetes Mellitus Type 1, Diabetes Mellitus Type 2, Renal Failure, Dialysis, Thyroid Disease, Weight Loss, Weight Gain, Other Other History: DENIES: Anesthesia Reactions, Now, Blood Transfusions, Chemotherapy , Cancer, Hemophilia, Malignant Hyperthermia, Sickle Cell Disease, Other - Surgical History Reproductive Surgery/Treatment: Reports: Tubal Ligation Anesthesia Reactions: None Hx Family Anesthesia Reaction: No History of Motion Sickness: No - Social History Smoking Status: Never smoker Hx Chewing Tobacco Use: No Substance Use Type: does not use Alcohol Intake Frequency: does not drink - Pertinent Findings Laboratory: CBC and BMP 11/11/16 04:27 11/11/16 15:04 BMP 11/11/16 11/11/16 04:27 15:04 Sodium 147 H Potassium 3.0 L 3.5 L Chloride 104 Carbon Dioxide 30 BUN 20.0 H Creatinine 0.8 Glucose 80 Calcium 9.4 EKG Rhythm: Normal Sinus Rhythm - Physical Exam Respiratory Exam: Present: lungs clear, bilateral breath sounds equal Cardiovascular Exam: Present: regular rate and rhythm, no murmur, systolic murmur - Airway Assessment Mallampati Score: II TMD: 3 Fingerbreadths Neck Extension: fair Overall Assessment: no airway concerns - ASA ASA Score: 2 - Plan Anesthesia: General Inhalation Gases - Discussion Discussion: Discussed risks/options/alternatives of anesthesia and questions answered. Patient consents. Nursing pain assessment noted. Present for Discussion: spouse, family member Attestation Statement: Prior to the delivery of any anesthetic medication, I examined the patient, developed the plan, obtained the patient's consent and discussed the risk and benefits of the procedure with the patient/guardian. - Additional Information Seen by Anesthesia: Yes
[2016-11-11] MEDS ORDERED: FentaNYL 100 MCG/2 ML INJECTION ONE (15:54)
[2016-11-11] MEDS ORDERED: EPHEDRINE 50mg/ml INJECTION ONE (16:34)
[2016-11-11] MEDS ORDERED: ONDANSETRON 4 MG/2 ML INJECTION ONE (16:35)
[2016-11-11] MEDS ORDERED: DiphenhydrAMINE 50 MG/ML INJECTION ONE (16:35)
[2016-11-11] MEDS ORDERED: SUCCINYLCHOLINE 20mg/mL 10mL INJECTION ONE (16:35)
[2016-11-11] MEDS ORDERED: LIDOCAINE 2% (100mg/5mL) PF 5ml vl ONE (16:35)
[2016-11-11] MEDS ORDERED: ROCURONIUM 50 MG/5 ML INJECTION IVP ONE (16:35)
[2016-11-11] MEDS ORDERED: NEOSTIGMINE 10 MG/10 ML INJECTION ONE (16:35)
[2016-11-11] MEDS ORDERED: GLYCOPYRROLATE 0.4 MG/2 ML INJECTION ONE (16:35)
[2016-11-11] MEDS ORDERED: PROPOFOL 20 ML ONE (16:35)
[2016-11-11] MEDS ORDERED: PHENYLEPHRINE INJ 10 MG/ML VIAL IV ONE (16:38)
--- NOTE | 2016-11-11 16:48 | General Surgery Procedure Note ---
Date of Procedure: 11/11/16 Surgeon: [facility] [employer] Patternmaker: Clemente East APRN Postoperative Diagnosis: small bowel obstruction from adhesive band; pancreatic mass Procedure: exploratory laparotomy, freeing of adhesive band, exploration/evaluation of pancreatic head Estimated Blood Loss: See Anesthesia Record. Pathology: none sent
[2016-11-11] MEDS ORDERED: HYDROMORPHONE 2 MG/ML INJECTION ONE (17:06)
[2016-11-11] MEDS ORDERED: ESMOLOL 100 MG/10 ML INJECTION ONE (17:07)
[2016-11-11] MEDS ORDERED: SUGAMMADEX 200mg/2ml INJECTION IVP ONE (17:07)
[2016-11-11] MEDS ORDERED: HYDROMORPHONE 2 MG/ML INJECTION IVP PRN (17:26)
[2016-11-11] MEDS: KETOROLAC 30 MG/ML INJECTION IVP PRN (17:52)
[2016-11-11] MEDS ORDERED: ONDANSETRON 4 MG/2 ML INJECTION IVP PRN (18:07)
[2016-11-11] MEDS ORDERED: HYDROMORPHONE PCA 30mg/30ml VIAL IV PRN (18:07)
[2016-11-11] MEDS: D5-1/2NS with KCL 20mEq 1,000 ML IV SCH (18:33)
[2016-11-12] MEDS: KETOROLAC 30 MG/ML INJECTION IVP PRN ×3 (02:37→21:25)
[2016-11-12] MEDS: D5-1/2NS with KCL 20mEq 1,000 ML IV SCH ×3 (02:38→16:17)
[2016-11-12] MEDS: PANTOPRAZOLE 40 MG INJECTION IVP SCH (08:39)
--- NOTE | 2016-11-12 09:19 | General Surgery Progress Note ---
Subjective Patient reports: no flatus Narrative: Did not sleep well during the night, states she was restless, moderate discomfort, Toradol helped. Denies chest pain. She has not ambulated yet. Geronimo will come out this am. Dr. Duran advised DC NG and start clear liquids. CA 19-9 from both last evening and this am <1, and reported to pt and daughter. - Vital Signs Last Vital Signs Temp 98.4 F 11/12/16 07:09 Pulse 69 11/12/16 07:09 Resp 16 11/12/16 08:00 BP 155/81 H 11/12/16 07:09 Pulse Ox 98 11/12/16 07:09 - Laboratory Result Diagrams: 11/12/16 04:27 11/12/16 04:27 Laboratory Tests 11/11/16 11/12/16 15:02 04:27 CA 19-9 Antigen < 1 < 1 - Microbiogy Microbiology 11/08/16 04:16 Peripheral/Iv Start Blood Culture - Preliminary No Growth After 4 Days 11/08/16 04:14 Peripheral/Iv Start Blood Culture - Preliminary No Growth After 4 Days - Abnormal Exam Cardiovascular: murmur Abdominal: hypoactive bowel sounds (very rare/abscent) - Normal Exam General: no acute distress Respiratory: clear all philippe Abdominal: soft, appropriately tender (midline incision), incision(s) ( dressings in tact to midline incision) Assessment and Plan (1) Cystic mass of pancreas Current Visit: Yes Status: Acute Assessment and plan: CA-19-9 normal at <1, still may need further workup on an outpatient basis (2) Small bowel obstruction Current Visit: Yes Status: Resolved Assessment and plan: DC NG and start clear liquids this am. DC geronimo and encourage ambulation. Plan: POD#1 Pain adequate control with Toradol and Dilaudid [place] W[employer]ER [employer] OILER. Will add [place] when taking PO well. Daily labs Urine output adequate, DC Geronimo NG DC'd and clear liquids started, if tolerates PO, may not need PIC Encourage ambulation. CA 19-9 normal, but further outpatient evaluation of pancreatic cyst/mass might be indicated Hospital Course Summary Disclaimer: The visit summary below is not to be considered part of the above Progress Note. Hospital Course: 11/09/16 18:18 Patient is improved with placement of NG tube to intermittent suction. She will try walking this evening. I will recheck her labs in the morning and assess her clinically. Once her bowel sounds return and she is at least passing flatness and it has no nausea, we will then clamp the NG tube and then later remove it. Sepsis Assessment - Evaluation Sepsis screening result: No Definite Risk
[2016-11-12] MEDS: CEFTRIAXONE 1 G in NS 100 ML IV SCH (09:22)
[2016-11-12] MEDS: ENOXAPARIN 40 MG/0.4 ML INJECTION SQ SCH (09:25)
--- NOTE | 2016-11-12 09:36 | Progress Note ---
DATE 11/11/2016 FINDINGS Mrs. Aburto did undergo a Gastrografin small bowel follow-through. Unfortunately , the contrast did not progress through her GI tract. Contrast did progress a feet beyond the stomach and did not progress past this location consistent with that of a complete small bowel obstruction. The patient stated that she has experienced increasing abdominal pain after clamping her NG. She has now been placed back to low intermittent suction. Vitals: Afebrile. Normotensive. Last recorded vitals include temperature 99.1, pulse 92, respirations 20, blood pressure 175/93, SaO2 99% on room air. LABORATORY/RADIOGRAPH EVALUATION The patient did undergo some potassium replacement today as a result of hypokalemia earlier this morning. Her potassium is now corrected to 3.5. As stated above, radiographically her small bowel series was consistent with that of a complete small bowel obstruction. ASSESSMENT 75-year-old female with complete small obstruction. PLAN I informed the patient and her family members who were present this afternoon that it would be my recommendation that we proceed with surgical intervention/ exploratory laparotomy. Did discuss what this procedure would entail and its associated risks which include, but are not limited to, bleeding and/or infection. The patient and family understood and wished to proceed. Did review her prior CT scan from Tuesday when she was initially in our emergency room facility. At that time there was no evidence for a small bowel obstruction. There was a cystic lesion noted within the head of the pancreas. This area will be inspected at the time of her exploratory laparotomy. KAREEM
--- NOTE | 2016-11-12 10:33 | Operative Note ---
DATE OF SERVICE 11/11/2016 SURGEON Hira Herrera MD PREOPERATIVE DIAGNOSIS Small bowel obstruction. POSTOPERATIVE DIAGNOSIS Small bowel obstruction secondary to adhesive band, mass within head of pancreas. PROCEDURE Exploratory laparotomy, lysis of adhesions. ANESTHESIA General endotracheal EBL AND FLUIDS Please see chart. BRIEF HISTORY/INDICATIONS Mrs. Aburto is a 75-year-old female whom I was asked to see earlier today as a result of strong suspicion for small bowel obstruction. Patient had been in our facility over the last couple of days being managed conservatively for suspected small bowel obstruction. NG was placed and the patient has been on IV fluids. Radiographically, the patient did have evidence for complete small bowel obstruction. We did perform a Gastrografin small bowel follow-through which was consistent with that of a complete small bowel obstruction. I did review a recent CT scan that had been performed prior to this admission that revealed a cystic lesion within the head of the pancreas. It was my recommendation to the patient that as a result of her small bowel obstruction, that she undergo an exploratory laparotomy. For completeness please refer to notes included in the patient's chart. FINDINGS Upon laparotomy, the liver edge was smooth and without nodularities. There was an adhesive band between the mesentery and a portion of epiploic fat upon the perisigmoid colon region that had resulted in an obstruction of the mid jejunum about 4-5 feet beyond the ligament of Treitz. This adhesive band was transected. There was no evidence for vascular compromise of the small bowel. I did focus my attention also to the head of the pancreas given her prior abnormal CT scan. The hepatic flexure was somewhat covering the duodenal C- loop. Hepatic flexure was mobilized. Head of the pancreas could be visualized within the duodenal C-loop. Upon the surface of the pancreas, no abnormalities were noted. Upon firm palpation, however, one could appreciate a marked area of firmness within the head of the pancreas. The duodenum was also Kocherized so that one could more easily palpate the head of the pancreas. I could feel a marked area of firmness within the head of the pancreas corresponding with this cystic-like calcified lesion noted upon CT scan. Visibly there was no external evidence of abnormalities upon the surface of the pancreas or within the parapancreatic region. I elected not to proceed with a transduodenal biopsy for fear of creating marked pancreatitis in this elderly 75-year-old female. DESCRIPTION OF PROCEDURE After informed consent was obtained, patient was brought to the operative suite , placed on the table in supine fashion. Abdomen was then prepped and draped in sterile fashion. Formal time-out was then completed. A standard midline incision was then made from just above the umbilicus up to and into the epigastric region. The underlying subcutaneous tissues, fascia and peritoneum were then opened to the extent of the incision. First ligament of Treitz was identified. Proximal small bowel was found to be significantly dilated. Small bowel was then began to be run distally where one then discovered an adhesive band lying over a segment of mid jejunum. The jejunum proximal to this adhesive band was significantly dilated and the small bowel distal to the adhesive band was of a collapsed nature. Adhesive band was transected. Small bowel was then delivered up into the incision so that it could be better visualized. There was no evidence for vascular compromise at the site of obstruction. Small bowel was then continued be carefully inspected to the cecum. No additional visible or palpable abnormalities were noted within the small bowel. Ascending colon, transverse colon, and descending colon were then palpated. There was a moderate amount of stool within the colon but no worrisome masses were noted. The rectum was also palpated and found to be without marked abnormalities. Liver edge was then palpated and found to be smooth and without nodularities. Gallbladder was without palpable stones and appeared normal. Given her prior CT scan that revealed a cystic lesion within the head of the pancreas, I elected to focus my attention to this region. Initially the duodenal C-loop could not be well visualized secondary to the fact there was a portion of the hepatic flexure overlying the duodenal C-loop. Hepatic flexure was mobilized and retracted caudally. Now one could then see the duodenal C-loop. Head of the pancreas was carefully palpated and one could feel a discrete area of firmness within the head of the pancreas. Body of the pancreas was without palpable abnormalities. To better palpate the pancreas I elected go ahead and Kocherize the duodenum. Peritoneum out laterally to the duodenal C-loop was incised with electrocautery and the duodenum was reflected medially. Hand then was able to be placed anterior and posteriorly upon the head of the pancreas and the head of the pancreas was carefully palpated. One could feel a discrete firm mass within the head of the pancreas that was on the order of about 2 cm in diameter. Visibly there were no abnormalities within the parapancreatic tissue. There were no visible abnormalities upon the surface of the pancreas. I had contemplated about proceeding with a transduodenal biopsy of this pancreatic mass. After some thought, however, I elected not to proceed with transduodenal biopsy for fear of creating postoperative pancreatitis and additional potential complications in this elderly 75-year-old female. Attention was then directed towards closure. The small bowel was again inspected and found to be within normal limits. Instrument, sponge and needle counts performed and found to be correct. Fascia was then closed in a running fashion with #1 PDS suture. Skin was then closed with belinda. Patient is in the process of awakening from her general anesthetic and will be sent back to recovery room once deemed in stable condition. KAREEM
[2016-11-12] MEDS: TRIAMTERENE/HCTZ 75/50 TAB 1 TAB TABLET PO SCH (12:34)
[2016-11-12] MEDS ORDERED: IMMUNE GLOBULIN IV SCH (13:15)
[2016-11-12] MEDS: ACETAMINOPHEN 500 MG TABLET PO PRN (13:34)
[2016-11-12] MEDS ORDERED: MILRINONE DRIP 20 MG/100 ML BAG IV SCH (14:00)
--- NOTE | 2016-11-12 14:17 | Progress Note ---
DATE 11/12/2016 FINDINGS Mrs. Aburto this morning was complaining of some incisional discomfort but stated that overall she is feeling significantly better. PHYSICAL EXAM VITALS: Afebrile. Normotensive. Please refer to EMR. CHEST: Clear to auscultation bilaterally. HEART: Regular rate and rhythm. Normal S1, S2, without gallops, murmurs or clicks. ABDOMEN: Palpation of the abdomen reveals some minimal incisional tenderness. Otherwise her abdomen was soft and nontender. LABORATORY/RADIOGRAPHIC EVALUATION The patient had a CBC today and her white count remains slightly elevated at 14, 700 which most likely a stress response from surgery and not an infectious etiology. BMP obtained and her potassium has improved at 3.7. CA 19-9 level has been obtained and was normal at less than 1. ASSESSMENT 75-year-old female status post exploratory laparotomy with lysis of adhesive band resulting in small bowel obstruction. Patient with mass within head of pancreas. PLAN The patient appears to be doing well from a surgical standpoint. Will go ahead and DC NG and begin the patient on some clear liquids. It is my intuition the patient's diet will hopefully be able to be advanced over the next 24-48 hours. We will hold off at this time in placing a PICC line for it is my intuition that she will be able to meet her enteral needs hopefully over the course of the next couple of days. KAREEM
[2016-11-12] MEDS ORDERED: HYDROCODONE/APAP 5mg/325mg TABLET PO PRN (16:47)
[2016-11-12] MEDS ORDERED: PEPPERMINT OIL MC PRN (17:13)
--- NOTE | 2016-11-12 18:26 | Internal Med Progress Note ---
Internal Medicine Subjective Rupali is a very pleasant 75-year-old white female who was seen and examined in her room. Patient is improving nicely following surgery. General surgery note reviewed and appreciated. Rupali has ambulated today. NG tube was removed as was the Noel catheter. I did review the results of her surgery as well as her CA 19-9 being negative. No BM or flatus as of yet. Exam Vital Signs: Temperature 98.7 F 11/12/16 15:34 Pulse Rate 79 11/12/16 15:34 Respiratory Rate 16 11/12/16 17:00 Blood Pressure 142/78 H 11/12/16 15:34 Pulse Oximetry 94 11/12/16 15:34 Oxygen Delivery Method Room Air Oxygen Flow Rate 3 Telemetry Rhythm: Sinus Rhythm Height: 5 ft 2 in Weight: 72.7 kg Body Mass Index: 29.4 - Constitutional Present: mild distress - Routine HEENT Exam Head: Present: normocephalic, atraumatic Eye: Present: EOMI, PERRL, conjunctivae pink. Absent: conjunctival icterus, scleral injection ENT: Present: mucous membranes moist, oropharynx clear, nares patent - Routine Neck Exam Present: supple. Absent: JVD, carotid bruit, lymphadenopathy, thyromegaly - Routine Chest/Breast/Axilla Exam Chest wall: Absent: tenderness Axillae: Absent: lymphadenopathy - Routine Respiratory Exam Present: CTA bilaterally. Absent: accessory muscle use, dyspnea, rales, respiratory distress, rhonchi, stridor, wheezes - Routine Cardiovascular Exam Present: RRR, no murmur. Absent: S3, S4 - Routine Abdominal Exam Present: soft, tenderness, distended (mildly). Absent: normoactive bowel sounds - Routine Extremities Exam Absent: cyanosis, clubbing, edema - Routine Skin Exam Present: intact, dry. Absent: cyanosis, erythema, mottling, petechiae, urticaria, jaundice - Routine Neurological Exam Present: alert, oriented X3, CN II-XII intact, moving all extremities. Absent: altered mental status, nystagmus - Routine Psychiatric Exam Present: normal affect, cooperative, good insight, good judgment. Absent: depressed, anxious Internal Medicine Results - Labs CBC & Chem 7: 11/12/16 04:27 11/12/16 04:27 Labs: Short CBC 11/12/16 Range/Units 04:27 WBC 14.7 H (4.5-11.0) T/MM3 Hgb 13.9 (12-16) GM/DL Hct 41.6 (36-46) % Plt Count 283 (130-400) T/MM3 [facility] 11/12/16 04:27 Sodium 147 H Potassium 3.7 Chloride 108 H Carbon Dioxide 29 BUN 22.0 H Creatinine 0.8 Glucose 162 H Calcium 9.0 Progress Note-A&P (1) Small bowel obstruction Status: Resolved Assessment and plan: Improving. Continue NG tube suctioning and ambulation. Consider surgical consult Current Visit: Yes (2) Dehydration Status: Resolved Assessment and plan: Improved. Continue IV hydration Current Visit: Yes (3) Intractable nausea and vomiting Status: Resolved Current Visit: Yes (4) Hypokalemia Status: Resolved Assessment and plan: Magnesium added Current Visit: Yes - Time Spent With Patient Total time spent is greater than 50% in coordination of care (as documented) at patient's floor/unit and/or counseling patient: 25 - 35 minutes Sepsis Assessment - Evaluation Sepsis screening result: No Definite Risk Hospital Course Summary Disclaimer: The visit summary below is not to be considered part of the above Progress Note. Hospital Course: 11/09/16 18:18 Patient is improved with placement of NG tube to intermittent suction. She will try walking this evening. I will recheck her labs in the morning and assess her clinically. Once her bowel sounds return and she is at least passing flatness and it has no nausea, we will then clamp the NG tube and then later remove it.
[2016-11-12] MEDS: TRAMADOL 50 MG TABLET PO PRN (18:29)
[2016-11-12] MEDS: METOCLOPRAMIDE 10mg/2ml INJECTION IVP PRN (18:29)
[2016-11-13] MEDS: D5-1/2NS with KCL 20mEq 1,000 ML IV SCH ×2 (03:15→13:56)
[2016-11-13] MEDS: TRAMADOL 50 MG TABLET PO PRN ×3 (04:24→21:42)
[2016-11-13] MEDS: NS with KCL 20 mEq 1,000 ML IV SCH (07:05)
[2016-11-13] MEDS: PANTOPRAZOLE 40 MG INJECTION IVP SCH (08:51)
[2016-11-13] MEDS: ENOXAPARIN 40 MG/0.4 ML INJECTION SQ SCH (08:51)
[2016-11-13] MEDS: TRIAMTERENE/HCTZ 75/50 TAB 1 TAB TABLET PO SCH (08:51)
[2016-11-13] MEDS: CEFTRIAXONE 1 G in NS 100 ML IV SCH (08:53)
[2016-11-13] MEDS ORDERED: Bisacodyl EC TAB 5 MG TABLET PO ONE (10:45)
--- NOTE | 2016-11-13 12:55 | Progress Note ---
DATE 11/13/2016 FINDINGS Ms. Aburto this morning was without complaints. She states that she is having very minimal abdominal discomfort. VITALS: Afebrile. Normotensive. ABDOMEN: Soft, nontender. ASSESSMENT 75-year-old female status post exploratory laparotomy with lysis of adhesions secondary to small bowel obstruction. Patient currently doing well. PLAN Advance to full liquids. Will give Dulcolax tablet. Otherwise continue current care. KAREEM
--- NOTE | 2016-11-13 14:57 | Progress Note ---
Subjective: The patient was seen 14:30 . The patient is doing okay postop. Her NG was removed yesterday. She continues to have a poor appetite and is on clear liquids but is not eating much. She has been up out of bed a couple of times. She is starting to pass gas, she has not had a bowel movement yet. She remains on IV fluids. Denies fevers, chills, sweats. She does have a sore throat, but denies shortness of breath, dyspnea on exertion, cough, sputum production, chest pain. Denies nausea, vomiting or diarrhea. Is urinating without difficulty. Objective Vital signs: Temperature 98.5 earlier 11/13/16 12:00 Pulse Rate 75 11/13/16 12:00 Respiratory Rate 22 11/13/16 14:00 Blood Pressure 143/88 H 11/13/16 12:00 Pulse Oximetry 95 11/13/16 12:00 Oxygen Delivery Method Room Air Oxygen Flow Rate Weight: 162 lb 0.636 oz - Additional findings Additional findings: In general, the patient is alert and oriented 3, cooperative with exam, and in no respiratory distress. HEENT: Head is atraumatic, normocephalic, no conjunctival petechiae, no oral thrush, mucous membranes are moist and pink. Lungs: Clear to auscultation without wheezes, crackles or rhonchi CV: Regular rate and rhythm without murmur Abdomen: She has rare bowel sounds, she has a midline incision with a dressing in place, this was not removed. She is tender to the right of midline without rebound. Extremities: No clubbing, no cyanosis, no edema. She has multiple ecchymoses especially on her left forearm from previous IV sticks. Skin: Warm and dry no sign of rash Neuro: Patient is alert IV access: Left hand Results - Labs CBC & Chem 7: 11/13/16 04:07 11/13/16 04:07 Microbiology Results: Microbiology 11/08/16 04:16 Peripheral/Iv Start Blood Culture - Final No Growth After 5 Days 11/08/16 04:14 Peripheral/Iv Start Blood Culture - Final No Growth After 5 Days Assessment and Plan (1) Intractable nausea and vomiting Current visit: Yes Status: Resolved 11/08/16 05:04 11/13/16 14:59 (2) Community acquired pneumonia Current visit: Yes Status: Ruled-out 11/08/16 05:02 11/13/16 14:59 (3) Dehydration Current visit: Yes Status: Resolved 11/08/16 05:05 11/13/16 14:59 (4) Sepsis Current visit: Yes Status: Resolved 11/08/16 05:05 11/13/16 15:00 Resuscitation Status: Full Code Assessment and Plan: Impression: Small bowel obstruction, status post exploratory laparotomy with lysis of adhesions on 11/11/2016 Exploration/evaluation of pancreatic head time of exploratory lap (no pathology sent at time of surgery) Hypokalemia Hypertension GERD Recommendations: The patient still has poor by mouth intake. Therefore we will supplement her potassium intravenously with her IV fluids. Recheck her lab work including potassium and magnesium in the morning. Encourage ambulation and activity. Appreciate Dr. Herrera's help. Sepsis Assessment - Evaluation Sepsis screening result: No Definite Risk Hospital Course Summary Disclaimer: The visit summary below is not to be considered part of the above Progress Note. Hospital Course: 11/09/16 18:18 Patient is improved with placement of NG tube to intermittent suction. She will try walking this evening. I will recheck her labs in the morning and assess her clinically. Once her bowel sounds return and she is at least passing flatness and it has no nausea, we will then clamp the NG tube and then later remove it. 11/13/16 15:05 Impression: Small bowel obstruction, status post exploratory laparotomy with lysis of adhesions on 11/11/2016 Exploration/evaluation of pancreatic head time of exploratory lap (no pathology sent at time of surgery) Hypokalemia Hypertension GERD Recommendations: The patient still has poor by mouth intake. Therefore we will supplement her potassium intravenously with her IV fluids. Recheck her lab work including potassium and magnesium in the morning. Encourage ambulation and activity. Appreciate Dr. Herrera's help.
[2016-11-13] MEDS: POTASSIUM CHLORIDE INJ 40 MEQ in NS 1,000 ML IV SCH (15:10)
[2016-11-14] MEDS: POTASSIUM CHLORIDE INJ 40 MEQ in NS 1,000 ML IV SCH ×2 (01:18→12:48)
[2016-11-14] MEDS: SALINE FLUSH 10ml SYRINGE IV PRN (08:53)
[2016-11-14] MEDS: PANTOPRAZOLE 40 MG INJECTION IVP SCH (08:54)
[2016-11-14] MEDS: TRIAMTERENE/HCTZ 75/50 TAB 1 TAB TABLET PO SCH (08:55)
[2016-11-14] MEDS: ENOXAPARIN 40 MG/0.4 ML INJECTION SQ SCH (08:55)
[2016-11-14] MEDS ORDERED: POLYETHYL GLYCOL 3350 17gm PACKET PO PRN (10:07)
[2016-11-14] MEDS ORDERED: Bisacodyl EC TAB 5 MG TABLET PO PRN (10:13)
--- NOTE | 2016-11-14 10:39 | Progress Note ---
Subjective: The patient was seen 1005 . The patient reports doing well and slept well during the night. She is sitting up in the chair. She has a very poor appetite, she reports nothing tastes good including coffee which she loves. She has had no result from the Dulcolax yesterday. She reports she needs to get up and move more today. She has had no fevers or chills. She her blood pressure remained slightly elevated. Denies any other complaints. She remains on IV fluids. Objective Vital signs: Temperature 98.0 F 11/14/16 07:33 Pulse Rate 79 11/14/16 07:33 Respiratory Rate 14 11/14/16 07:33 Blood Pressure 160/87 H 11/14/16 07:33 Pulse Oximetry 94 11/14/16 07:33 Oxygen Delivery Method Room Air Oxygen Flow Rate 3 Weight: 158 lb 11.725 oz - Additional findings Additional findings: In general, the patient is alert and oriented 3, cooperative with exam, and in no respiratory distress. HEENT: Head is atraumatic, normocephalic,, no oral thrush, mucous membranes are dry with brownish discoloration.. Lungs: Clear to auscultation without wheezes, crackles or rhonchi CV: Regular rate and rhythm without murmur Abdomen: Soft, nontender, minimal bowel sounds are present, there is no guarding no rebound. She has a midline dressing in place which was not removed Extremities: No clubbing, no cyanosis, no edema. Skin: Warm and dry no sign of rash Neuro: Patient is alert IV access: Left hand no phlebitis Results - Labs CBC & Chem 7: 11/14/16 04:32 11/14/16 04:32 Microbiology Results: Microbiology 11/08/16 04:16 Peripheral/Iv Start Blood Culture - Final No Growth After 5 Days 11/08/16 04:14 Peripheral/Iv Start Blood Culture - Final No Growth After 5 Days Assessment and Plan (1) Intractable nausea and vomiting Current visit: Yes Status: Resolved 11/08/16 05:04 11/13/16 14:59 (2) Community acquired pneumonia Current visit: Yes Status: Ruled-out 11/08/16 05:02 11/13/16 14:59 (3) Dehydration Current visit: Yes Status: Resolved 11/08/16 05:05 11/13/16 14:59 (4) Sepsis Current visit: Yes Status: Resolved 11/08/16 05:05 11/13/16 15:00 Assessment and Plan: Impression: Small bowel obstruction, status post exploratory laparotomy with lysis of adhesions on 11/11/2016 Exploration/evaluation of pancreatic head time of exploratory lap (no pathology sent at time of surgery) Hypokalemia today's potassium is 3.8 with IV supplementation Hypomagnesemia -today's magnesium is 1.3 Hypertension GERD Recommendations: The patient still has poor by mouth intake. Nurses believe she might eat better if her diet is advanced. We'll defer to surgery.. Recheck her lab work including potassium and magnesium in the morning. Will supplement her magnesium Encourage ambulation and activity. Appreciate Dr. Herrera's help. Sepsis Assessment - Evaluation Sepsis screening result: No Definite Risk Hospital Course Summary Disclaimer: The visit summary below is not to be considered part of the above Progress Note. Hospital Course: 11/09/16 18:18 Patient is improved with placement of NG tube to intermittent suction. She will try walking this evening. I will recheck her labs in the morning and assess her clinically. Once her bowel sounds return and she is at least passing flatness and it has no nausea, we will then clamp the NG tube and then later remove it. 11/13/16 15:05 Impression: Small bowel obstruction, status post exploratory laparotomy with lysis of adhesions on 11/11/2016 Exploration/evaluation of pancreatic head time of exploratory lap (no pathology sent at time of surgery) Hypokalemia Hypertension GERD Recommendations: The patient still has poor by mouth intake. Therefore we will supplement her potassium intravenously with her IV fluids. Recheck her lab work including potassium and magnesium in the morning. Encourage ambulation and activity. Appreciate Dr. Herrera's help. 11/14/16 11:10 Impression: Small bowel obstruction, status post exploratory laparotomy with lysis of adhesions on 11/11/2016 Exploration/evaluation of pancreatic head time of exploratory lap (no pathology sent at time of surgery) Hypokalemia today's potassium is 3.8 with IV supplementation Hypomagnesemia -today's magnesium is 1.3 Hypertension GERD Recommendations: The patient still has poor by mouth intake. Nurses believe she might eat better if her diet is advanced. We'll defer to surgery.. Recheck her lab work including potassium and magnesium in the morning. Will supplement her magnesium Encourage ambulation and activity. Appreciate Dr. Herrera's help.
[2016-11-14] MEDS ORDERED: BISACODYL 10 MG SUPPOSITORY RECTALLY ONE (10:57)
[2016-11-14] MEDS ORDERED: MAGNESIUM SULFATE 1gm PREMIX 1 GM/100 ML BAG IV ONE (11:13)
[2016-11-14] MEDS ORDERED: NS FLUSH BAG 500ml IV PRN (12:42)
[2016-11-14] MEDS: ACETAMINOPHEN 500 MG TABLET PO PRN (17:14)
[2016-11-14] MEDS: TRAMADOL 50 MG TABLET PO PRN (21:00)
--- NOTE | 2016-11-15 06:59 | Progress Note ---
DATE 11/14/2016 FINDINGS Mrs. Aburto this morning states that overall she is feeling well. She has still not had any bowel movement. She denies any element of nausea or vomiting. Her p.o. intake she states, however, has been somewhat limited. VITALS: Afebrile. Normotensive. ABDOMEN: Soft. Minimal incisional tenderness. No element guarding or rebound. LABORATORY/RADIOGRAPH EVALUATION The patient had a CBC today that was unremarkable. White count was 10.0. BMP obtained and found to be essentially within normal limits. ASSESSMENT 75-year-old female status post exploratory laparotomy with lysis of adhesive band secondary to small bowel obstruction. Patient overall stable. PLAN Continue with current care. I do see that some additional Dulcolax tablets have been ordered. Will wait for bowel activity and advance diet as tolerated. Overall the patient remains stable from a surgical standpoint. MTDD
[2016-11-15] MEDS ORDERED: BISACODYL 10 MG SUPPOSITORY RECTALLY ONE ×2 (08:00→18:19)
[2016-11-15] MEDS ORDERED: DiphenhydrAMINE 25 MG CAPSULE PO PRN (08:00)
[2016-11-15] MEDS ORDERED: Bisacodyl EC TAB 5 MG TABLET PO ONE (08:00)
[2016-11-15] MEDS: ENOXAPARIN 40 MG/0.4 ML INJECTION SQ SCH (08:37)
[2016-11-15] MEDS: TRIAMTERENE/HCTZ 75/50 TAB 1 TAB TABLET PO SCH (08:38)
[2016-11-15] MEDS: PANTOPRAZOLE 40 MG INJECTION IVP SCH (08:38)
[2016-11-15] MEDS: ACETAMINOPHEN 500 MG TABLET PO PRN (09:33)
--- NOTE | 2016-11-15 10:33 | General Surgery Progress Note ---
Subjective Patient reports: feels better, tolerating a regular diet, no bowel movement Narrative: sitting up in bed. Denies nausea, bloating, distention. Denies flatus and has had 1 suppository and Dulcolax PO without results. Ambulating. Pain is minimal, last Ultram was yesterday, and Tylenol this am. Voiding without difficulty. Her back is itchy, started yesterday, and she would like some Benadryl. - Vital Signs Last Vital Signs Temp 97.4 F 11/15/16 08:05 Pulse 90 11/15/16 08:05 Resp 18 11/15/16 08:05 BP 144/87 H 11/15/16 08:05 Pulse Ox 96 11/15/16 08:05 - Laboratory Result Diagrams: 11/14/16 04:32 11/15/16 04:10 - Abnormal Exam Cardiovascular: murmur Abdominal: hypoactive bowel sounds (rare gurgling) - Normal Exam General: awake, alert, no acute distress Cardiovascular: regular rhythm, regular rate Respiratory: clear all philippe Abdominal: appropriately tender (midline incision), incision(s) (dresing removed , belinda in tact, no erythema, there is some early ecchymosis in the cephalad 1 /3 of the incision.) Assessment and Plan (1) Cystic mass of pancreas Current Visit: Yes Status: Acute (2) Small bowel obstruction Current Visit: Yes Status: Resolved Plan: POD #4 VSS, tolerating regular diet without nausea, distention, but no flatus or BM yet. Will give another Dulcolax suppository as well as PO Dulcolax. Benadryl prn for itching. Anticipate discharge once bowel function returns. Hospital Course Summary Disclaimer: The visit summary below is not to be considered part of the above Progress Note. Hospital Course: 11/09/16 18:18 Patient is improved with placement of NG tube to intermittent suction. She will try walking this evening. I will recheck her labs in the morning and assess her clinically. Once her bowel sounds return and she is at least passing flatness and it has no nausea, we will then clamp the NG tube and then later remove it. 11/13/16 15:05 Impression: Small bowel obstruction, status post exploratory laparotomy with lysis of adhesions on 11/11/2016 Exploration/evaluation of pancreatic head time of exploratory lap (no pathology sent at time of surgery) Hypokalemia Hypertension GERD Recommendations: The patient still has poor by mouth intake. Therefore we will supplement her potassium intravenously with her IV fluids. Recheck her lab work including potassium and magnesium in the morning. Encourage ambulation and activity. Appreciate Dr. Herrera's help. 11/14/16 11:10 Impression: Small bowel obstruction, status post exploratory laparotomy with lysis of adhesions on 11/11/2016 Exploration/evaluation of pancreatic head time of exploratory lap (no pathology sent at time of surgery) Hypokalemia today's potassium is 3.8 with IV supplementation Hypomagnesemia -today's magnesium is 1.3 Hypertension GERD Recommendations: The patient still has poor by mouth intake. Nurses believe she might eat better if her diet is advanced. We'll defer to surgery.. Recheck her lab work including potassium and magnesium in the morning. Will supplement her magnesium Encourage ambulation and activity. Appreciate Dr. Herrera's help. Sepsis Assessment - Evaluation Sepsis screening result: No Definite Risk
[2016-11-15 10:43] VITALS: BMI 28.9
[2016-11-15] MEDS ORDERED: SENNA LIQUID (X-PREP) 74 ML PO ONE (14:11)
--- NOTE | 2016-11-15 15:03 | Progress Note ---
DATE: 11/15/2016 FINDINGS Mrs. Aburto, today, is without complaints. She has ambulated several times earlier this morning. She states she has had a very small "pebble sized BM." Denies any element of nausea or vomiting. Abdominal pain continues to improve. EXAM VITALS: Afebrile. Normotensive. ABDOMEN: Soft, nontender. Incision clean, dry, intact. ASSESSMENT 75-year-old female status post exploratory laparotomy, lysis of adhesions secondary to small bowel obstruction. Patient overall doing well. Plan Will go ahead and give some additional cathartic and attempt to promote bowel activity. Once the patient has had a bowel movement, will then discharge to home at that time. Overall I'm pleased with the patient's progress. MTDD
--- NOTE | 2016-11-15 18:37 | Internal Med Progress Note ---
Internal Medicine Subjective Rupali is a very pleasant 75-year-old white female. She has responded well since her surgery with the exception of bowel function. No BM. Multiple meds given. She is ambulating. Surgical and med notes from the weekend reviewed and appreciated. Denies CP, SOB. Some belching, but no flatus. Exam Vital Signs: Temperature 96.7 F L 11/15/16 15:41 Pulse Rate 99 11/15/16 15:41 Respiratory Rate 16 11/15/16 15:41 Blood Pressure 131/72 11/15/16 15:41 Pulse Oximetry 97 11/15/16 15:41 Oxygen Delivery Method Room Air Oxygen Flow Rate 3 Telemetry Rhythm: Sinus Rhythm Height: 5 ft 2 in Weight: 71.668 kg Body Mass Index: 28.9 - Constitutional Present: no acute distress - Routine HEENT Exam Head: Present: normocephalic, atraumatic Eye: Present: EOMI, PERRL, conjunctivae pink. Absent: conjunctival icterus, scleral injection ENT: Present: mucous membranes moist, oropharynx clear, nares patent - Routine Neck Exam Present: supple. Absent: carotid bruit, lymphadenopathy, thyromegaly, tenderness - Routine Chest/Breast/Axilla Exam Chest wall: Absent: tenderness Axillae: Absent: lymphadenopathy - Routine Respiratory Exam Present: CTA bilaterally. Absent: accessory muscle use, dyspnea, decreased breath sounds - Routine Cardiovascular Exam Present: RRR. Absent: S3, S4 - Routine Abdominal Exam Present: soft. Absent: normoactive bowel sounds (bowel sounds present but decreased) - Routine Extremities Exam Absent: cyanosis, clubbing, edema, calf tenderness - Routine Neurological Exam Present: oriented X3, CN II-XII intact, moving all extremities - Routine Psychiatric Exam Present: normal affect, normal thought process, cooperative, good insight, good judgment. Absent: depressed, anxious Internal Medicine Results - Labs CBC & Chem 7: 11/14/16 04:32 11/15/16 04:10 Labs: BMP 11/15/16 04:10 Sodium 139 Potassium 3.5 L Chloride 104 Carbon Dioxide 23 BUN 15.0 D Creatinine 1.0 D Glucose 106 Calcium 9.7 Progress Note-A&P (1) Small bowel obstruction Status: Resolved Assessment and plan: Improving. Continue NG tube suctioning and ambulation. Consider surgical consult Current Visit: Yes (2) Dehydration Status: Resolved Assessment and plan: Improved. Continue IV hydration Current Visit: Yes (3) Intractable nausea and vomiting Status: Resolved Current Visit: Yes (4) Hypokalemia Status: Resolved Assessment and plan: Magnesium added Current Visit: Yes (5) Constipation by delayed colonic transit Status: Acute Current Visit: Yes - Time Spent With Patient Total time spent is greater than 50% in coordination of care (as documented) at patient's floor/unit and/or counseling patient: 25 - 35 minutes Sepsis Assessment - Evaluation Sepsis screening result: No Definite Risk Hospital Course Summary Disclaimer: The visit summary below is not to be considered part of the above Progress Note. Hospital Course: 11/09/16 18:18 Patient is improved with placement of NG tube to intermittent suction. She will try walking this evening. I will recheck her labs in the morning and assess her clinically. Once her bowel sounds return and she is at least passing flatness and it has no nausea, we will then clamp the NG tube and then later remove it. 11/13/16 15:05 Impression: Small bowel obstruction, status post exploratory laparotomy with lysis of adhesions on 11/11/2016 Exploration/evaluation of pancreatic head time of exploratory lap (no pathology sent at time of surgery) Hypokalemia Hypertension GERD Recommendations: The patient still has poor by mouth intake. Therefore we will supplement her potassium intravenously with her IV fluids. Recheck her lab work including potassium and magnesium in the morning. Encourage ambulation and activity. Appreciate Dr. Herrera's help. 11/14/16 11:10 Impression: Small bowel obstruction, status post exploratory laparotomy with lysis of adhesions on 11/11/2016 Exploration/evaluation of pancreatic head time of exploratory lap (no pathology sent at time of surgery) Hypokalemia today's potassium is 3.8 with IV supplementation Hypomagnesemia -today's magnesium is 1.3 Hypertension GERD Recommendations: The patient still has poor by mouth intake. Nurses believe she might eat better if her diet is advanced. We'll defer to surgery.. Recheck her lab work including potassium and magnesium in the morning. Will supplement her magnesium Encourage ambulation and activity. Appreciate Dr. Herrera's help. 11/15/16 18:39 Bowel sounds are improved. No BM or flatus. If now BM by morning then enema.
[2016-11-15] MEDS: TRAMADOL 50 MG TABLET PO PRN (21:32)
[2016-11-15] MEDS: SALINE FLUSH 10ml SYRINGE IV PRN (21:33)
[2016-11-16] MEDS ORDERED: PANTOPRAZOLE 40 MG TABLET PO SCH (08:15)
[2016-11-16] MEDS: FLEET PHOSPHO - SODA ENEMA 133ml PR PRN ×5 (08:20→14:55)
[2016-11-16] MEDS: ENOXAPARIN 40 MG/0.4 ML INJECTION SQ SCH (08:36)
[2016-11-16] MEDS: TRIAMTERENE/HCTZ 75/50 TAB 1 TAB TABLET PO SCH (08:36)
--- NOTE | 2016-11-16 09:40 | General Surgery Progress Note ---
Subjective Patient reports: pain is less (midline incision, states it is getting easier to get in and out of bed and get around. Denies feeling of distention.), tolerating a regular diet (denies nausea), voiding w/o difficulty, flatus, bowel movement (small soft after a X-prep, Dulcolax tabs and suppository. Pt states she is to have enemas till more activity. The 1st enema did not produce results.) - Vital Signs Last Vital Signs Temp 97.7 F 11/16/16 07:04 Pulse 82 11/16/16 07:04 Resp 17 11/16/16 07:04 BP 148/88 H 11/16/16 07:04 Pulse Ox 93 11/16/16 07:04 - Laboratory Result Diagrams: 11/14/16 04:32 11/15/16 04:10 - Abnormal Exam Cardiovascular: murmur - Normal Exam General: no acute distress Cardiovascular: regular rhythm, regular rate Respiratory: clear bilaterally Abdominal: appropriately tender (midline incision and right lateral mild pain on palpation), incision(s) (CDI dressing dry) Psychiatric: normal affect Assessment and Plan (1) Cystic mass of pancreas Current Visit: Yes Status: Acute (2) Small bowel obstruction Current Visit: Yes Status: Resolved Plan: Generally doing well, eating regular diet without nausea, distention. Still no significant BM since surgery, even with fairly aggressive laxatives. Enemas ongoing currently, no result after 1st enema per patient. No lab today, will get a CBC and BMP. check HGB, WBC and K+, Mag. Perhaps discharge later today if adequate bowel activity. Will have F/U with Sharon's office November 30 for staple removal. Hospital Course Summary Disclaimer: The visit summary below is not to be considered part of the above Progress Note. Hospital Course: 11/09/16 18:18 Patient is improved with placement of NG tube to intermittent suction. She will try walking this evening. I will recheck her labs in the morning and assess her clinically. Once her bowel sounds return and she is at least passing flatness and it has no nausea, we will then clamp the NG tube and then later remove it. 11/13/16 15:05 Impression: Small bowel obstruction, status post exploratory laparotomy with lysis of adhesions on 11/11/2016 Exploration/evaluation of pancreatic head time of exploratory lap (no pathology sent at time of surgery) Hypokalemia Hypertension GERD Recommendations: The patient still has poor by mouth intake. Therefore we will supplement her potassium intravenously with her IV fluids. Recheck her lab work including potassium and magnesium in the morning. Encourage ambulation and activity. Appreciate Dr. Herrera's help. 11/14/16 11:10 Impression: Small bowel obstruction, status post exploratory laparotomy with lysis of adhesions on 11/11/2016 Exploration/evaluation of pancreatic head time of exploratory lap (no pathology sent at time of surgery) Hypokalemia today's potassium is 3.8 with IV supplementation Hypomagnesemia -today's magnesium is 1.3 Hypertension GERD Recommendations: The patient still has poor by mouth intake. Nurses believe she might eat better if her diet is advanced. We'll defer to surgery.. Recheck her lab work including potassium and magnesium in the morning. Will supplement her magnesium Encourage ambulation and activity. Appreciate Dr. Herrera's help. 11/15/16 18:39 Bowel sounds are improved. No BM or flatus. If now BM by morning then enema. Sepsis Assessment - Evaluation Sepsis screening result: No Definite Risk
[2016-11-16] MEDS: ACETAMINOPHEN 500 MG TABLET PO PRN (09:53)
--- NOTE | 2016-11-16 15:32 | Progress Note ---
DATE 11/16/2016 FINDINGS Mrs. Aburto today was without complaints. She states that she did pass a fair amount of flatus last evening. She did have a small BM associated with use of a suppository. The patient also had received an enema earlier today and has had some small results per her report. The patient denies any element of abdominal pain. She denies any element of nausea. EXAM VITALS: Afebrile. Normotensive. Please refer to EMR. ABDOMEN: Soft. Minimal incisional tenderness. Incision is clean, dry, and intact. LABORATORY/RADIOGRAPHIC EVALUATION The patient had a CBC today that was unremarkable. White count is 9.5. Hemoglobin is 14.5. BMP obtained and found to be without marked abnormalities. Potassium slightly low at 3.3. ASSESSMENT 75-year-old female status post exploratory laparotomy with lysis of adhesions secondary to small bowel obstruction. Patient doing well. PLAN From a general surgical standpoint, I do believe the patient could be discharged later today. It does appear that she is tolerating a regular diet. Has had flatus and a small BM. Will discuss with Dr. Gomez . I do believe on an outpatient basis, the patient should be sent on to gastroenterology for further evaluation of this mass within the head of the pancreas. Perhaps the patient can undergo endoscopic ultrasound with a transduodenal biopsy of this mass if felt indicated. At this time, patient doing well from a surgical standpoint. KAREEM
[2016-11-16 15:57] VITALS: BP 146/89; PULSE 95; RESP 16; TEMP 98; O2SAT 96
--- NOTE | 2016-11-16 17:27 | Discharge Instructions ---
Discharge Plan - Med Rec/Dispo Referrals/Follow Up: Hira Herrera MD [Physician] - 11/30/16 3:30 pm Roberta Instructions: Pneumonia (GEN) Additional Instructions: May shower starting November 18, 2016 Prescriptions: No Action [place]-3 Fatty Acids [Fish Oil] 500 mg PO DAILY #0 Flaxseed Oil 1,000 mg PO DAILY #0 Potassium Chloride (K+ Potassium) 20 meq PO DAILY #0 Sennosides [Senokot] 8.6 mg PO DAILY #0 Triamterene [Dyrenium] 50 mg PO DAILY #0 Aspirin [Aspir 81] 81 mg PO DAILY #0 Cranberry 500 mg PO DAILY #0 Hydrocodone/APAP 5/325 [[place] 5/325] 1 tab PO Q6H PRN #12 tab PRN Reason: Pain Ondansetron [Zofran Odt] 1 tab PO Q6HR PRN #10 tab PRN Reason: Nausea Ubidecarenone/Vitamin E [Co Q-10 50 mg Softgel] 1 cap PO DAILY #0 Garlic 1 cap PO DAILY #0 Green Tea [place] Extract [Green Tea] 1 cap PO DAILY #0 Lactobacillus Acidophilus [Acidophilus] 1 cap PO DAILY #0 Levofloxacin [Levaquin] 500 mg PO DAILY #5 tablet
--- NOTE | 2016-11-16 18:13 | Discharge Instructions ---
Discharge Plan - Med Rec/Dispo Referrals/Follow Up: Hira Herrera MD [Physician] - 11/30/16 3:30 pm Ignacio Gomez DO [Family Provider] - [place] Instructions: Bowel Obstruction (GEN) Additional Instructions: May shower starting November 18, 2016 Prescriptions: Continue [place]-3 Fatty Acids [Fish Oil] 500 mg PO DAILY #0 Flaxseed Oil 1,000 mg PO DAILY #0 Potassium Chloride (K+ Potassium) 20 meq PO DAILY #0 Sennosides [Senokot] 8.6 mg PO DAILY #0 Triamterene [Dyrenium] 50 mg PO DAILY #0 Aspirin [Aspir 81] 81 mg PO DAILY #0 Cranberry 500 mg PO DAILY #0 Hydrocodone/APAP 5/325 [[place] 5/325] 1 tab PO Q6H PRN #12 tab PRN Reason: Pain Ondansetron [Zofran Odt] 1 tab PO Q6HR PRN #10 tab PRN Reason: Nausea Ubidecarenone/Vitamin E [Co Q-10 50 mg Softgel] 1 cap PO DAILY #0 Garlic 1 cap PO DAILY #0 Green Tea [place] Extract [Green Tea] 1 cap PO DAILY #0 Lactobacillus Acidophilus [Acidophilus] 1 cap PO DAILY #0 Discontinued Levofloxacin [Levaquin] 500 mg PO DAILY #5 tablet - Disposition 01 Discharged Home, Self-Care
--- NOTE | 2016-11-16 18:18 | Discharge Summary ---
Discharge Information Date of admission: 11/08/16 03:38 Anticipated date of discharge: 11/16/16 Attending Physician: Ignacio Gomez DO Primary care physician: Ignacio Gomez DO Consults: 11/08/16 06:07 Dietary Consult [CONS] Routine Comment: Reason For Exam: 11/11/16 08:18 Physician Consult [CONS] Routine Consulting Provider: Hira Herrera Reason For Exam: abdominal pain and small bowel obstruction Ordering Provider has Notified Fruit Or Nut Farmworker: No - Discharge Diagnosis Discharge Diagnosis: Small bowel obstruction secondary to adhesions. - Procedures Procedures: Adhesio lysis right Dr. Herrera - Laboratory Labs: 11/16/16 10:00 11/16/16 10:00 - Microbiology Microbiology 11/08/16 04:16 Peripheral/Iv Start Blood Culture - Final No Growth After 5 Days 11/08/16 04:14 Peripheral/Iv Start Blood Culture - Final No Growth After 5 Days History of Present Illness HPI: This is a 75 y/o female who was seen this past Tuesday in the ED for nausea, abdomen pain, and shortness of breath. The workup demonstrated a right lower lobe infiltrate and a cyst in the head of the Pancrease. The patient was diagnosed with CAP and started on Levaquin. Since discharge from the ED the patient has had persist nausea and weakness. The patient denies fever but perhaps chills and sweats. The patient's labs demonstrate a significant leukocytosis and evidence of dehydration. She is to be admitted for IVF and Iv antibiotics for her CAP. The pateint does describe a cough that is productive of a green sputum 11/16/16 18:15 Rupali was ostensibly admitted for pneumonia, however she had a small bowel obstruction caused by adhesions. There is also a partially calcified cystic lesion at the head of the pancreas identified on CT scan. This was not biopsied during surgery. Adhesive lysis was successful and she has had an extended but noneventful recovery. Hospital Course This is a general summary of the patient's hospital course. For more details refer to the complete medical record. Hospital course: 11/09/16 18:18 Patient is improved with placement of NG tube to intermittent suction. She will try walking this evening. I will recheck her labs in the morning and assess her clinically. Once her bowel sounds return and she is at least passing flatness and it has no nausea, we will then clamp the NG tube and then later remove it. 11/13/16 15:05 Impression: Small bowel obstruction, status post exploratory laparotomy with lysis of adhesions on 11/11/2016 Exploration/evaluation of pancreatic head time of exploratory lap (no pathology sent at time of surgery) Hypokalemia Hypertension GERD Recommendations: The patient still has poor by mouth intake. Therefore we will supplement her potassium intravenously with her IV fluids. Recheck her lab work including potassium and magnesium in the morning. Encourage ambulation and activity. Appreciate Dr. Herrera's help. 11/14/16 11:10 Impression: Small bowel obstruction, status post exploratory laparotomy with lysis of adhesions on 11/11/2016 Exploration/evaluation of pancreatic head time of exploratory lap (no pathology sent at time of surgery) Hypokalemia today's potassium is 3.8 with IV supplementation Hypomagnesemia -today's magnesium is 1.3 Hypertension GERD Recommendations: The patient still has poor by mouth intake. Nurses believe she might eat better if her diet is advanced. We'll defer to surgery.. Recheck her lab work including potassium and magnesium in the morning. Will supplement her magnesium Encourage ambulation and activity. Appreciate Dr. Herrera's help. 11/15/16 18:39 Bowel sounds are improved. No BM or flatus. If now BM by morning then enema. 11/16/2016 Patient spell sounds continue to improve. She is passed flatus as well as stool today. She appears stable for discharge. Surgery team agrees. She will be discharged to home with outpatient follow-up. Time spent with patient: 25 - 35 minutes DVT Prophylaxis: SCD's, ALEKSANDRA [facility] Prophylaxis: Protonix Discharge Plan - Med Rec/Dispo Referrals/Follow Up: Hira Herrera MD [Physician] - 11/30/16 3:30 pm Ignacio Gomez DO [Family Provider] - [place] Instructions: Bowel Obstruction (GEN) Additional Instructions: May shower starting November 18, 2016 Prescriptions: Continue [place]-3 Fatty Acids [Fish Oil] 500 mg PO DAILY #0 Flaxseed Oil 1,000 mg PO DAILY #0 Potassium Chloride (K+ Potassium) 20 meq PO DAILY #0 Sennosides [Senokot] 8.6 mg PO DAILY #0 Triamterene [Dyrenium] 50 mg PO DAILY #0 Aspirin [Aspir 81] 81 mg PO DAILY #0 Cranberry 500 mg PO DAILY #0 Hydrocodone/APAP 5/325 [[place] 5/325] 1 tab PO Q6H PRN #12 tab PRN Reason: Pain Ondansetron [Zofran Odt] 1 tab PO Q6HR PRN #10 tab PRN Reason: Nausea Ubidecarenone/Vitamin E [Co Q-10 50 mg Softgel] 1 cap PO DAILY #0 Garlic 1 cap PO DAILY #0 Green Tea [place] Extract [Green Tea] 1 cap PO DAILY #0 Lactobacillus Acidophilus [Acidophilus] 1 cap PO DAILY #0 Discontinued Levofloxacin [Levaquin] 500 mg PO DAILY #5 tablet - Disposition 01 Discharged Home, Self-Care
== END 2016-11-16 18:45 | disposition home or self-care (01) | DRG 336 ==
LOC: ED 01:04 → MED 03:38 → SRG 11-11 18:35
PROVIDERS: ADMIT Emergency Medicine; ATTEND Internal Medicine